=== PATIENT | male | born 1970 | race Caucasian/White ===

== ENCOUNTER → 2018-01-02 08:37 | Outpatient (CLI) | payer MEDICAID, SELFPAY ==
--- NOTE | 2018-01-02 14:13 | PFT ---
INTRODUCTION: The patient is a 48-year-old male currently under the care of Dr. White that presents for pulmonary function testing secondary to a diagnosis of COPD. Respiratory therapy reports good patient effort reports no other concerns. Bronchodilators were used during testing. INTERPRETATION: Forced expiration spirometry demonstrates the presence of a mild large airways obstructive ventilatory defect. There was no significant response to aerosolized bronchodilators, based upon strict ATS criteria. Spirograms are of good quality and do not plateau indicating slow emptying of the lungs. Body plethysmography was performed and reveals lung volumes to be within normal limits. Diffusing capacity by single breath CO is within normal limits at 85% of predicted. When compared to previous pulmonary function studies dated January 2016 there has been an 8% reduction in the patient's FEV1 along with a 12% reduction in DLCO. IMPRESSION: These pulmonary function studies demonstrate the presence of an irreversible mild large airways obstructive ventilatory defect with preserved lung volumes and diffusing capacity.
== END ==
PROVIDERS: Visit Provider Internal Medicine Critical Care Medicine
DX: J44.9 Chronic obstructive pulmonary disease, unspecified (principal)
CPT/HCPCS: 94060; 94726; 94729

== ENCOUNTER → 2019-01-11 06:50 | Outpatient (CLI) | payer MEDICAID, SELFPAY ==
--- NOTE | 2019-01-11 12:27 | PFT ---
INTRODUCTION: The patient is a 49-year-old male that presents for pulmonary function studies secondary to a diagnosis of COPD. Respiratory therapy reports good patient effort. Bronchodilators were used during testing. INTERPRETATION: Forced expiration spirometry demonstrates the presence of a mild large airways obstructive ventilatory defect. There was no significant response to aerosolized bronchodilators, based upon strict ATS criteria. Spirograms are of good quality and do not plateau indicating slow emptying of the lungs. Body plethysmography was performed and reveals lung volumes to be within normal limits. Diffusing capacity by single breath CO is also within normal limits at 82% of predicted. When compared to previous pulmonary function studies dated December 2017, there has been a 13% reduction in FEV1. IMPRESSION: These pulmonary function studies demonstrate the presence of an irreversible mild large airways obstructive ventilatory defect with preserved lung volumes and diffusing capacity.
== END ==
PROVIDERS: Visit Provider Nurse Practitioner Acute Care
DX: J44.9 Chronic obstructive pulmonary disease, unspecified (principal)
CPT/HCPCS: 94060; 94726; 94729

== ENCOUNTER 2019-03-04 10:27 | Day surgery (SDC) | payer MEDICAID, SELFPAY ==
[2019-03-04] VITALS (7 sets, daily range): BP systolic 110–135; BP diastolic 63–83; PULSE 47–60; RESP 16–18; TEMP 36.4–36.6; O2SAT 99–100; BMI 18.4
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
--- NOTE | 2019-03-04 11:36 | OP.ENDO_ITS ---
03/04/2019 Ninoska Roman [facility] Re : Colonoscopy procedure for Maxim Montelongo [facility] This procedure was performed on Monday, March 04, 2019. My impressions and recommendations are as follows: Impressions : - The entire examined colon is normal on direct and retroflexion views. - No specimens collected. Recommendations : - Discharge patient to home. - Resume previous diet. - Continue present medications. - Repeat colonoscopy in 5 years for surveillance due to family history of colon cancer. My findings are described in the full procedure note, which is enclosed. If I can be of further assistance, please feel free to contact me at Doctor phone number(s): , Work: . Sincerely, Gurmeet Anthony MD 03/04/2019 11:36:34 AM This report has been signed electronically.
== END 2019-03-04 12:24 | disposition home or self-care (01) ==
LOC: EN 10:28 → AC 10:32
PROVIDERS: Visit Provider Surgery
PROC: 0DJD8ZZ Inspection of Lower Intestinal Tract, Via Natural or Artificial Opening Endoscopic (ICD-10-PCS; CPT 45378; principal; 2019-03-04 11:25)
DX: Z12.11 Encounter for screening for malignant neoplasm of colon (principal); K21.9 Gastro-esophageal reflux disease without esophagitis; I10 Essential (primary) hypertension; E78.00 Pure hypercholesterolemia, unspecified; J45.909 Unspecified asthma, uncomplicated; F32.9 Major depressive disorder, single episode, unspecified; F41.9 Anxiety disorder, unspecified; F17.200 Nicotine dependence, unspecified, uncomplicated; Z79.899 Other long term (current) drug therapy; Z80.0 Family history of malignant neoplasm of digestive organs
CPT/HCPCS: 45378; J7120

== ENCOUNTER → 2020-03-31 09:08 | Outpatient (CLI) | payer MEDICAID, SELFPAY ==
[2019-10-08 11:19] VITALS: BMI 18.8
--- NOTE | 2020-03-31 13:55 | PFTCOMP ---
COMPLETE PULMONARY FUNCTION TEST INTERPRETATION Brief HPI: Patient is a 50 year old male, currently under the care of myself, who presents to [facility] for complete pulmonary function tests secondary to diagnosis of COPD. Respiratory therapist reports good effort and reproducible results. Interpretation: Forced expiration spirometry shows a mild large airways obstructive ventilatory defect with an FEV1 of 71% predicted. There is no significant bronchodilator response by strict ATS criteria. Spirograms are of good quality and plateau slowly, indicating slowly emptying areas of the lungs. The respiratory flow volume loop shows decreased expiratory flow rates at all lung volumes consistent with airway obstruction. Lung volumes by body plethysmography show a normal total lung capacity at 6.13 L, 97% predicted. All other lung volumes are within normal limits. Diffusion capacity by carbon monoxide is normal at 80% predicted. The airway resistance is normal. Compared to previous pulmonary function tests from 01/11/2019, there has been no significant change. Impression: Irreversible mild large airways obstructive ventilatory defect with no significant business change manager the last year.
== END ==
PROVIDERS: PCP Nurse Practitioner Family; Referring Provider Internal Medicine Critical Care Medicine; Visit Provider Internal Medicine Critical Care Medicine
DX: J44.9 Chronic obstructive pulmonary disease, unspecified (principal); Z72.0 Tobacco use
CPT/HCPCS: 94060; 94726; 94729

== ENCOUNTER → 2020-10-08 08:15 | Outpatient (CLI) | payer MEDICAID, SELFPAY ==
[2020-04-06 07:51] VITALS: BMI 20.7
--- NOTE | 2020-10-09 14:55 | PFT ---
INTRODUCTION: The patient is a 50-year-old male that presents for pulmonary function studies secondary to a diagnosis of COPD. Respiratory therapy reports good patient effort. Bronchodilators were used during testing. INTERPRETATION: Forced expiration spirometry demonstrates the presence of a mild large airways obstructive ventilatory defect. There was no significant response to aerosolized bronchodilators. Spirograms are of good quality and do not plateau indicating slow emptying of the lungs. Body plethysmography was performed and reveals lung volumes to be within normal limits. Diffusing capacity by single breath CO is also within normal limits. IMPRESSION: Irreversible mild large airways obstructive ventilatory defect with preserved lung volumes and diffusing capacity.
== END ==
PROVIDERS: Referring Provider Nurse Practitioner Acute Care; Visit Provider Nurse Practitioner Acute Care
DX: J44.9 Chronic obstructive pulmonary disease, unspecified (principal)
CPT/HCPCS: 94060; 94726; 94729

== ENCOUNTER → 2020-10-15 11:33 | Outpatient (CLI) | payer MEDICAID, SELFPAY ==
[2020-04-06 07:51] VITALS: BMI 20.7
[2020-10-15 12:33] LABS: Absolute Lymphocyte Count 2.09 X10^3/uL (0.83-4.51); Absolute Neutrophil Count 5.3 X10^3/uL (2.0-7.7); Basophil# 0.07 X10^3/uL; Basophil% 0.8 % (0-1); Eosinophil# 0.27 X10^3/uL; Eosinophils% 3.2 % (0-5); Hematocrit 47.7 % (40-54); Lymphocyte # 2.09 X10^3/ul (4.0); Lymphocyte % 25.2 % (19-41); Mean Corp Hgb Conc 33.5 g/dL (32-36); Mean Corpuscular Volume 89.5 fL (80-94); Mean Platelet Vol. 9.1 fl (6.2-12.0); Monocyte# 0.54 X10^3/uL; Monocyte% 6.5 % (0-10); NRBC Flagged by Analyzer 0 % (0-5); Neutrophil # 5.27 X10^3/uL (2.7-7.7); Neutrophil % 63.5 % (47-70); Platelet Count 261 K/mm3 (150-450); RBC Distribution Width CV 13.1 % (11.6-14.6); Red Blood Count 5.33 M/mm3 (4.6-6.2); White Blood Count 8.3 K/mm3 (4.4-11.0)
[2020-10-15 13:11] LABS: ALB/GLOB Ratio 1.2 RATIO (0.9-2.4); AST(SGOT) 17 U/L (15-37); Alanine Aminotransfer ALT/SGPT 39 U/L (16-61); Albumin, Serum 3.7 g/dL (3.2-5.0); Alkaline Phosphatase 100 U/L (45-117); Anion Gap 4 (5-15); BUN 12 mg/dL (7-18); BUN/Creat Ratio 11.3 RATIO (10-20); Calcium,Total 8.8 mg/dL (8.5-10.1); Chloride 107 mmol/L (98-107); Cholesterol 212 mg/dL (200); Creatinine, Serum 1.06 mg/dL (0.70-1.30); EST Glomerular Filtration Rate 78 mL/min (>60); Est Glom Filt Rate - Afr Amer 94 mL/min (>60); Globulin 3.2 g/dL (2.2-4.2); Glucose 84 mg/dL (74-106); High Density Lipoprotein 63 mg/dL; Potassium 3.7 mmol/L (3.5-5.1); Protein, Total 6.9 g/dL (6.4-8.2); Sodium Level 141 mmol/L (136-145); T4 Free Direct 0.87 ng/dL (0.76-1.46); Thyroid Stim Hormone (TSH) 1.41 uIU/mL (0.358-3.74); Triglycerides 117 mg/dL; Very Low Density Lipoprotein 23 mg/dL (5-40)
== END ==
PROVIDERS: Referring Provider Family Medicine; Visit Provider Family Medicine
DX: I10 Essential (primary) hypertension (principal); E78.5 Hyperlipidemia, unspecified; F41.9 Anxiety disorder, unspecified; E55.9 Vitamin D deficiency, unspecified
CPT/HCPCS: 36415; 80053; 80061; 84439; 84443; 85025

== ENCOUNTER → 2021-02-12 14:33 | Outpatient (CLI) | payer MEDICAID, SELFPAY ==
[2021-01-27 08:32] VITALS: BMI 22.5
== END ==
PROVIDERS: PCP Family Medicine; Referring Provider Nurse Practitioner Acute Care; Visit Provider Nurse Practitioner Acute Care
DX: R52 Pain, unspecified (principal)
CPT/HCPCS: 87635; C9803; U0002

== ENCOUNTER → 2021-07-27 17:38 | Outpatient (CLI) | payer MEDICAID, SELFPAY ==
--- NOTE | 2021-07-27 17:37 | CT_ITS ---
STUDY: LOW DOSE CT LUNG CANCER SCREENING REASON FOR EXAM: Male, 51 years old. Smoker and gt; 20 pack years. Patient smoked 1 pack per day for 40 years. COPD. Asthma. RADIATION DOSAGE (If Supplied By Facility): CTDIvol = ( 1.59 ) mGy, DLP = ( 51.82 ) mGycm TECHNIQUE: No contrast was administered. Low dose technique was utilized (average mAS-38 and kVp 120). 1.25 mm axial source images with a slice interval of 1.25-mm were reconstructed in lung windows. 2.5 mm axial source images with a slice interval of 2.5-mm were reconstructed in lung windows. 5.0 mm axial source images with a slice interval of 5.0-mm were reconstructed in soft tissue windows. Nodule measured using lung windows on PACS and/or independent workstation with automated measurement of minimum and maximum diameter. Nodule measurement reported as average diameter rounded to the nearest whole number. Growth is defined as an increase ins size of greater than 1.5 mm. COMPARISON: None. NODULES: No suspicious nodules are seen. Emphysema: Hyperinflation. Emphysematous changes worse in the upper lobes with centrilobular emphysema. Scarring at both lung apices. Endobronchial lesion: None Aorta: Atherosclerotic plaques of the aortic arch and descending thoracic aorta. Coronary arteries: Coronary artery calcification. Mediastinal nodes: Small benign-appearing mediastinal lymph nodes. Other chest and abdominal findings: CT/Low Dose CT Lung Screening IMPRESSION: Lung-RADS category 2 - Continue annual screening with LDCT in 12 months. IMPORTANT NOTES FOR USE: ACR Lung-RADS Version 1.1 Assessment Categories Release Date: 2018 Category: Coded 0-4 bases on nodule(s) with highest degree of suspicion. Negative screen is defined as categories 1 and 2; a positive screen is defined as categories 3 and 4. Category 3 and 4A nodules that are unchanged on interval CT should be coded as category 2, and individuals returned to screening in 12 months. Category 4X: Category 3 or 4 nodules with additional imaging findings that increase the suspicion of lung cancer, such as spiculation, GGN that doubles in size in 1 year, enlarged lymph notes, etc. Category Modifiers: S (significant finding unrelated to lung cancer) Electronically Signed: Mic Roblero MD at 12:42 EDT , Service support ,
== END ==
PROVIDERS: PCP Family Medicine; Referring Provider Nurse Practitioner Acute Care; Visit Provider Nurse Practitioner Acute Care
DX: Z12.2 Encounter for screening for malignant neoplasm of respiratory organs (principal); F17.210 Nicotine dependence, cigarettes, uncomplicated
CPT/HCPCS: 71271

== ENCOUNTER → 2022-03-01 | Outpatient (CLI) | payer MEDICAID, SELFPAY ==
--- NOTE | 2022-03-01 13:30 | PFTCOMP ---
COMPLETE PULMONARY FUNCTION TEST INTERPRETATION Brief HPI: Patient is a 52 year old male, currently under the care of myself, who presents to [facility] for complete pulmonary function tests secondary to diagnosis of COPD. Respiratory therapist reports good effort and reproducible results. Interpretation: Forced expiration spirometry shows a mild large airways obstructive ventilatory defect with an FEV1 of 73% predicted. There is no significant bronchodilator response by strict ATS criteria. Spirograms are of good quality and plateau slowly, indicating slowly emptying areas of the lungs. The respiratory flow volume loop shows decreased expiratory flow rates at all lung volumes consistent with airway obstruction. Lung volumes by body plethysmography show a normal total lung capacity at 6.39 L, 98% predicted. All other lung volumes are within normal limits. Diffusion capacity by carbon monoxide is normal at 84% predicted. The airway resistance is slightly elevated. Compared to previous pulmonary function tests from 10/08/2020, there has been no significant change. Impression: Irreversible mild large airways obstructive ventilatory defect with relative preservation of lung volumes and diffusion capacity, in a pattern consistent with chronic bronchitis.
== END | disposition home or self-care (01) ==
PROVIDERS: PCP Family Medicine; Referring Provider Nurse Practitioner Acute Care; Visit Provider Nurse Practitioner Acute Care
DX: J44.9 Chronic obstructive pulmonary disease, unspecified (principal)
CPT/HCPCS: 94060; 94726; 94729

== ENCOUNTER → 2022-03-08 | Outpatient (CLI) | payer MEDICAID, SELFPAY ==
[2022-03-08 09:30] VITALS: PULSE 70; PULSE 78; PULSE 85; PULSE 87; PULSE 92; PULSE 93; PULSE 94; O2SAT 96; O2SAT 97; O2SAT 98
--- NOTE | 2022-03-09 07:05 | PCM.PSN.6M ---
PSN 6 Minute Walk Test 6 Minute Walk Test 6 Minute Walk Test: 6 Minute Walk Test PSN:6-Minute Walk Test Start: 03/08/22 09:30 Freq: Status: Active Protocol: [id number].[id number] Document 03/08/22 09:30 [facility] (Rec: 03/08/22 09:32 [facility] [id number]) 6 Minute Walk Test Pre-test Oxygen Delivery Method Room Air Pulse Ox (%) 97 Pulse Rate (60-100 beats/min) 70 Dyspnea Jaydon Scale (0-10) 0.5 Exertion Jaydon Scale (6-20) 6 1st minute Oxygen Delivery Method Room Air Pulse Ox (%) 96 Pulse Rate (60-100 beats/min) 87 2nd minute Oxygen Delivery Method Room Air Pulse Ox (%) 96 Pulse Rate (60-100 beats/min) 85 3rd minute Oxygen Delivery Method Room Air Pulse Ox (%) 97 Pulse Rate (60-100 beats/min) 87 4th minute Oxygen Delivery Method Room Air Pulse Ox (%) 96 Pulse Rate (60-100 beats/min) 92 5th minute Oxygen Delivery Method Room Air Pulse Ox (%) 97 Pulse Rate (60-100 beats/min) 93 6th minute Oxygen Delivery Method Room Air Pulse Ox (%) 96 Pulse Rate (60-100 beats/min) 94 Dyspnea Jaydon Scale (0-10) 2 Exertion Jaydon Scale (6-20) 11 Post-test Oxygen Delivery Method Room Air Pulse Ox (%) 98 Pulse Rate (60-100 beats/min) 78 Full Laps Walked 18 Partial Lap, Number of Tiles Walked 20 Total Distance Walked (ft) 1082 Interpretation Interpretation: The patient ambulated 1082 feet over the course of 6 minutes beginning on room air without assistive devices. Pretesting oxygen saturation was noted to be 97% on room air. With ambulation, the rodrigo oxygen saturation was 96%. There was no significant exertional oxygen desaturation. Recommendations Recommendations: There is no indication for the use of supplemental oxygen at this time.
== END | disposition home or self-care (01) ==
PROVIDERS: PCP Family Medicine; Referring Provider Nurse Practitioner Acute Care; Visit Provider Nurse Practitioner Acute Care
DX: J44.9 Chronic obstructive pulmonary disease, unspecified (principal)
CPT/HCPCS: 94618

== ENCOUNTER → 2022-09-03 | Outpatient (CLI) | payer MEDICAID, SELFPAY ==
--- NOTE | 2022-09-03 10:07 | CT_ITS ---
EXAM: CT CHEST, LUNG CANCER SCREENING WITHOUT INTRAVENOUS CONTRAST CLINICAL INDICATION: smoker and gt; 20 pack years, 1/2 pack per day x 38 years, hyypertension, COPD, asthma, emphysema. TECHNIQUE: Helically acquired images were obtained of the chest without intravenous contrast using low dose (LDCT) lung cancer screening protocol. This CT exam was performed using one or more of the following dose reduction techniques: automated exposure control, adjustment of the mA and/or kV according to patient size, and/or use of iterative reconstruction technique. This report was created using Bit[employer]amp report [employer]usp[employer] technology. COMPARISON: None. FINDINGS: LUNGS AND PLEURAL SPACES: Diffuse paraseptal and centrilobular pulmonary emphysema noted. No evidence of lung mass or nodule. No pleural effusion or thickening. No pneumothorax. HEART: Normal. Heart size is normal. No pericardial effusion. No significant coronary artery calcifications. MEDIASTINUM: Normal. No mediastinal or hilar adenopathy. Esophagus is unremarkable. No hiatal hernia. THYROID: Normal. No thyroid lesions. BONES/JOINTS: Disc space narrowing noted at the mid and lower thoracic spine level. No suspicious lytic or blastic abnormality. VASCULATURE: Normal. Thoracic aorta is non-dilated. LYMPH NODES: Normal. No enlarged lymph nodes. CT/Low Dose CT Lung Screening IMPRESSION: 1. No evidence of lung mass or pulmonary nodule. 2. Pulmonary emphysema. 3. ACR Lung CT Screening Reporting T Data System (Lung-RADS) score: 1S - Additional clinically significant or potentially clinically significant findings are described. Recommend continued annual screening with low-dose CT (LDCT) in 12 months. Electronically Signed: Karlo Mittal MD at 12:07 EDT ,
== END | disposition home or self-care (01) ==
LOC: CT 10:08
PROVIDERS: PCP Family Medicine; Referring Provider Nurse Practitioner Acute Care; Visit Provider Nurse Practitioner Acute Care
DX: Z12.2 Encounter for screening for malignant neoplasm of respiratory organs (principal); F17.210 Nicotine dependence, cigarettes, uncomplicated
CPT/HCPCS: 71271

== ENCOUNTER → 2024-03-08 | Outpatient (CLI) | payer OTHER, SELFPAY ==
--- NOTE | 2024-03-08 12:51 | CT_ITS ---
HISTORY: smoker. TECHNIQUE: Helically acquired images were obtained of the chest without contrast. A radiation dose optimization technique was used for this scan. 825 images. COMPARISON: 09/03/2022, 07/27/2021. FINDINGS: LARGE AIRWAYS: Patent. LUNGS: Moderate emphysema with chronic mild biapical and peripheral scarring. Tiny calcified right lower lobe granuloma again seen. No new suspicious nodule or acute alveolar consolidation. PLEURA: No pneumothorax or significant pleural effusion. HEART/PERICARDIUM: Heart within normal limits in size with coronary artery calcification. No pericardial effusion. VESSELS: Thoracic aorta nondilated. Mild atherosclerosis. MEDIASTINUM/LAVELL: Stable borderline enlarged right paratracheal lymph node. BONES: Mild degenerative change. CT/Low Dose CT Lung Screening IMPRESSION: Lung-RADS category 2: Continue annual screening with low dose CT. Electronically Signed: Zandra Perez MD at 11:41 EDT ,
== END | disposition home or self-care (01) ==
PROVIDERS: PCP Family Medicine; Referring Provider Nurse Practitioner Acute Care; Visit Provider Nurse Practitioner Acute Care
DX: Z12.2 Encounter for screening for malignant neoplasm of respiratory organs (principal); J44.9 Chronic obstructive pulmonary disease, unspecified; F17.210 Nicotine dependence, cigarettes, uncomplicated
CPT/HCPCS: 71271; 94060; 94726; 94729

== ENCOUNTER → 2025-04-08 | Outpatient (CLI) | payer BC, SELFPAY ==
--- NOTE | 2025-04-08 07:14 | CT_ITS ---
PROCEDURE: LOW DOSE CT LUNG SCREENING 04/08/2025 REASON FOR EXAM: SMOKING TECHNIQUE: Low Dose CT Lung screening without contrast. Coronal and Sagittal reconstruction series were provided. One or more dose reduction techniques were used (e.g., Automated exposure control, adjustment of the mA and/or kV according to patient size, use of iterative reconstruction technique). [facility]FER[facility] LINK: [facility] Lung-R[facility] RADIATION DOSE SUMMARY: CTDlvol: 1.6 mGy DLP: 51 mGycm COMPARISON: CT chest 03/08/2024 FINDINGS: Lymph Nodes: No significant lymphadenopathy. Heart and Vasculature:Normal heart size. Mild coronary and aortic calcification. There are multiple scattered nodular opacities measuring up to 5 mm at the right lateral lung base (series 2, image 173), new since 03/08/2024. Unchanged 5 mm nodule in the right middle lobe (image 166) and 4 mm nodule in the right upper lobe (image 117). Lungs and Airways: Central airways are clear. Apical predominant centrilobular and paraseptal emphysema. Pleura:No effusion. Upper Abdomen:Unremarkable Bones:Healed left-sided rib fractures. Degenerative changes of the spine. CT/Low Dose CT Lung Screening IMPRESSION: Nodular opacities in the right lung base are new from 03/08/2024 and favored to be infectious or inflammatory. Findings are consistent with Lung-RADS Category: 0 INFLAMMATORY-INCOMPLETE. FINDINGS SUGGEST BRENDAN OF AN INFLAMMATORY OR INFECTIOUS PROCESS. RECOMMEND 1-3 MONTH LDCT. Other Significant Findings: Mild coronary calcification. Reading Location: [facility]
--- OUTSIDE RECORDS SUMMARY | 2025-04-08 07:32 | XMS RPT_ITS | CCD ---
Author Organization [facility] Care Team Providers Care Bow String Maker Name Role Phone Snell COLLATOR OPERATOR, Meri Eliza Unavailable Unavaila ble Snell COLLATOR OPERATOR, Meri Eliza Unavailable Unavaila ble Snell COLLATOR OPERATOR, Meri Eliza Unavailable Unavaila KAREEM Thomas MD Primary Care Physician Dr. Kareem Joyner Primary Care Provider Giovanna MANAGER IN TRAINING, MANAGER IN TRAINING-C Ester Referring Provider [phone] Giovanna MANAGER IN TRAINING, MANAGER IN TRAINING-C Ester Other Provider Dr. Rojelio White Attending Provider [phone] Nicolas Obrien Attending Provider [phone] Kareem Joyner Primary Care Provider KAREEM JOYNER MD Attending Unavailable KAREEM JOYNER MD Primary Care Unavailable KAREEM JOYNER MD Primary Care Unavailable AMY BABCOCK Attending Unavailable KAREEM JOYNER MD Attending Unavailable KAREEM JOYNER MD Primary Care Unavailable Kareem Joyner Primary Care Unavailable Kareem Joyner Referring Unavailable Ester Heredia NP Attending Unavailable Kareem Joyner Primary Care Unavailable Kareem Wen Attending Unavailable Kareem Wen Attending Unavailable Kareem Joyner Primary Care Unavailable Ester Heredia NP Attending Unavailable Ester Heredia NP Referring Unavailable Kareem Joyner Primary Care Unavailable Allergies Allergy Classification Reported Allergen(s) Allergy Type Date of Onset Reaction(s) Facility (13 sources) apis mellifera venom; Translations: [BEE STINGS] allergy to substance 5 Shortness of breath, swelling, anaphylaxic shock depending on type of bee [facility] Work Phone: (1 source) bee venom protein (honey bee) Allergy to substance 2 NEEDS FOLLOW-UP [facility] Work Phone: (1 source) bee venom protein (honey bee) Drug allergy (disorder) 5 [facility] Repository NEGATED: Highlighted row has been ruled out! (1 source) Drug allergy [facility] NEGATED: Highlighted row has been ruled out! (1 source) Drug allergy [facility] NEGATED: Highlighted row has been ruled out! (1 source) Drug allergy [facility] NEGATED: Highlighted row has been ruled out! (1 source) Drug allergy [facility] Medications Current Medications Medication Drug Class(es) Dates Sig (Normalized) Sig (Original) albuterol (20 sources) beta2-Adrenergic Agonist Start: 03-31-2023 take 2 puff(s) by inhalation every four hours as needed for wheezing Ventolin HFA MDI (90 mcg/inh) inhalation aerosol 2 puff(s), Inhalation, q4h, PRN as needed for wheezing, # 18 gram(s), 3 Refill(s), [facility]acy: [facility] #[id number], 173, cm, 03/31/23 14:47:00 EDT, Height, kg, 03/31/23 14:47:00 EDT, Dosing Weight Start Date: 03/31/23 Status: Ordered Start: 06-07-2021 take 2 puff(s) by in halation every four hours as needed for wheezing Ventolin HFA MDI (90 mcg/inh) inhalation aerosol 2 puff(s), Inhalation, q4h, PRN as needed for wheezing, # 8 gram(s), 0 Refill(s) Start Date: 06/07/21 Status: Ordered Start: 01-15-2018 take 1 puff(s) by in halation every four hours Albuterol Sulfate (Ventolin Hfa) 90 mcg/actuation HFA aerosol inhaler Active 2 PUFF INHALATION Q4H January 15, 2018 8:15am Start: 01-08-2018 End: 01-15-2018 take 1 puff(s) by inhalation every four hours Albuterol Sulfate (Ventolin Hfa) 90 mcg/actuation HFA aerosol inhaler Discontinued 2 PUFF INHALATION Q4H January 08, 2018 2:13pm January 15, 2018 8:16am Start: 03-28-2016 VENTOLIN HFA 1 08 (90 Base) MCG/ACT AERS 2 puffs every 4 hours ALBUTEROL SULFATE [id number] Ester Heredia FERRYBOAT HELPER Start: 09-29-2015 take 2 puff(s) by mo uth every four hours as needed VENTOLIN HFA 108 (90 Base) MCG/ACT AERS 2 puff by mouth every 4H as needed ALBUTEROL SULFATE [id number] Ester Heredia FERRYBOAT HELPER Start: 09-29-2015 End: 04-20-2016 take 2 puff(s) by mouth every four hours as needed VENTOLIN HFA 108 (90 Base) MCG/ACT AERS 2 puff by mouth every 4H as needed ALBUTEROL SULFATE [id number] Meri Vang take 2 puff(s) by mo uth every four hours as needed VENTOLIN HFA 108 (90 Base) MCG/ACT AERS 2 puff by mouth every 4H as needed ALBUTEROL SULFATE [id number] Denise Quevedo amLODIPine 5 mg oral tablet (3 sources) Dihydropyridine Calcium Channel Juani Start: 01-27-2021 take 5 mg by mouth once daily Amlodipine Active 5 MG PO DAILY January 27, 2021 8:37am amoxicillin 875 mg / clavulanate 125 mg oral tablet (1 source) Penicillin-class Antibacterial Start: 09-13-2021 End: 09-20-2021 take 1 tablet by mouth every twelve hours amoxicillin-clavu lanate 875 mg-125 mg oral tablet 1 tab(s), Oral, q12h, X 7 day(s), # 14 tab(s), 0 Refill(s), 09/20/21 14:58:00 EST, Pharmacy: [id number], Acute sinusitis, 172.7, cm, 06/07/21 9:46:00 EDT, Height, 66.8, kg, 09/13/21 14:37:00 EST, Dosing Weight Start Date: 09/13/21 Stop Date: 09/20/21 Status: Ordered atorvastatin 10 mg oral tablet (6 sources) HMG-CoA Reductase Inhibitor Start: 01-27-2021 atorvastatin 10 mg oral tablet Dose : 10 mg = 1 tab(s), Oral, qDay, # 90 tab(s), 3 Refill(s), Pharmacy: [facility] [id number] [facility], 172.7, cm, 12/15/21 8:54:00 EST, Height, kg, 12/15/21 8:54:00 EST, Dosing Weight Start Date: 01/25/22 Status: Ordered azelastine hydrochloride 0.206 mg/actuat metered dose nasal spray (5 sources) Histamine-1 Receptor Antagonist Start: 11-02-2021 azelastine 205.5 mcg/inh (0.15%) nasal spray Nasal, BID, 0 Refill(s) Start Date: 11/02/21 Status: Ordered Start: 11-02-2021 take 1 spray(s) nasa l route twice daily Azelastine Active 1 SPRAY INTRANASAL TWICE A DAY November 02, 2021 11:57am administer into each nostril azelastine 205.5 mcg/inh (0.15%) nasal spray (1 source) Start: 11-02-2021 azelastine 205 .5 mcg/inh (0.15%) nasal spray Nasal, BID, 0 Refill(s) Start Date: 11/02/21 Status: Ordered Breo Ellipta 200 mcg-25 mcg/inh inhalation powder (3 sources) Start: 12-04-2020 take 1 dose by inhalation once daily Breo Ellipta 200 mcg-25 mcg/inh inhalation powder Dose = 1 puff(s), Inhalation, qDay, # 28 EA, 0 Refill(s) Start Date: 12/04/20 Status: Ordered 24 hr buPROPion hydrochloride 300 mg extended release oral tablet (16 sources) Aminoketone Start: 06-07-2021 End: 06-02-2022 take 1 tablet by mouth every hour, then take 1 tablet by mouth once daily Wellbutrin XL 300 mg/24 hours oral tablet, extended release Dose : 300 mg = 1 tab(s), Oral, qDay, # 90 tab(s), 3 Refill(s), [facility] [address] Depression Vertigo, 172.7, cm, 06/07/21 9:46:00 EDT, Height, kg, 06/07/21 9:46:00 EDT, Dosing Weight Start Date: 06/07/21 Stop Date: 06/02/22 Status: Ordered Start: 06-07-2021 End: 10-05-2021 take 1 tablet by mouth every hour, then take 1 tablet by mouth once daily at bedtime Wellbutrin SR 150 mg/12 hours oral tablet, extended release Dose : 150 mg = 1 tab(s), Oral, qHS, # 90 tab(s), 3 Refill(s), [facility] [address] 172.7, cm, 06/07/21 9:46:00 EDT, Height, kg, 06/07/21 9:46:00 EDT, Dosing Weight Start Date: 06/07/21 Stop Date: 10/05/21 Status: Ordered Start: 01-27-2021 take 150 mg by mouth once daily in the morning Bupropion Hcl Active 150 MG PO EVERY MORNING January 27, 2021 8:40am Start: 01-27-2021 take 300 mg by mouth once daily in the morning Bupropion Hcl Active 300 MG PO EVERY MORNING January 27, 2021 8:38am Start: 04-20-2016 End: 07-27-2016 BUPROPION HCL ER (XL) 150 MG [id number] 1 tab daily BUPROPION HCL [id number] Meri Snell LPN cyclobenzaprine hydrochloride 10 mg oral tablet (1 source) Muscle Relaxant Start: 11-27-2021 End: 12-02-2021 cyclobenzaprine 10 mg oral tablet Dose : 10 mg = 1 tab(s), Oral, TID, X 5 day(s), # 15 tab(s), 0 Refill(s), 12/02/21 20:44:00 EST Start Date: 11/27/21 Stop Date: 12/02/21 Status: Ordered doxazosin 4 mg oral tablet (9 sources) alpha-Adrenergic Juani Start: 12-05-2023 doxazosin 4 mg oral tablet Dose : 4 mg = 1 tab(s), Oral, Daily, # 30 tab(s), 1 Refill(s), [id number], COPD (chronic obstructive pulmonary disease) with acute lower respiratory infection Mixed hyperlipidemia, 172.5, cm, 02/07/24 8:37:00 EDT, Height, kg, 02/07/24 8:37:00 EDT, Dosing Weight Start Date: 04/18/24 Status: Ordered Start: 09-09-2022 doxazosin 4 mg oral tablet Dose : 4 mg = 1 tab(s), Oral, Daily, # 90 tab(s), 1 Refill(s), [facility]acy: [facility] #[id number], COPD (chronic obstructive pulmonary disease) with acute lower respiratory infection Mixed hyperlipidemia, 173, cm, 09/01/22 14:05:00 EDT, Height, kg, 09/01/22... Start Date: 09/09/22 Status: Ordered Start: 01-27-2021 doxazosin 4 mg oral tablet Dose : 4 mg = 1 tab(s), Oral, Daily, # 90 tab(s), 3 Refill(s), Pharmacy: [facility] [address] COPD (chronic obstructive pulmonary disease) with acute lower respiratory infection Mixed hyperlipidemia, 172.7, cm, 06/07/21 9:46:00 EDT, Height, kg,... Start Date: 07/28/21 Status: Ordered escitalopram 20 mg oral tablet (9 sources) Serotonin Reuptake Inhibitor Start: 12-22-2021 escitalopram 20 mg oral tablet Dose : 20 mg = 1 tab(s), Oral, Daily, # 90 tab(s), 3 Refill(s), Pharmacy: [facility] [address] 172.7, cm, 12/15/21 8:54:00 EST, Height, kg, 12/15/21 8:54:00 EST, Dosing Weight Start Date: 12/22/21 Status: Ordered Start: 07-28-2021 escitalopram 2 0 mg oral tablet Dose : 20 mg = 1 tab(s), Oral, Daily, # 30 tab(s), 3 Refill(s), Pharmacy: [facility] [address] 172.7, cm, 06/07/21 9:46:00 EDT, Height, kg, 06/07/21 9:46:00 EDT, Dosing Weight Start Date: 07/28/21 Status: Ordered Start: 01-27-2021 take 20 mg by mouth at bedtime Escitalopram Oxalate Active 20 MG PO AT BEDTIME January 27, 2021 8:39am Start: 03-01-2019 End: 01-27-2021 take 10 mg by mouth at bedtime Escitalopram Oxalate Di scontinued 10 MG PO AT BEDTIME March 01, 2019 9:15am January 27, 2021 8:41am fluticasone proprionate NASAL 50 mcg/ spray (2 sources) Start: 12-04-2020 take 1 dose nasal route once daily in the morning fluticasone proprionate NASAL 50 mcg/ spray Dose = 2 spray(s), Nostril, each, qAM, 0 Refill(s) Start Date: 12/04/20 Status: Ordered Roceyadodvu-Ugaxrehfn-Zf lanter (1 source) Start: 03-14-2022 Mrkvanhgcdp-Rvtwcuvfa-I ilanter (Trelegy Ellipta) 200-62.5-25 mcg blister with device Active 1 INH INHALATION Q24H 60 March 14, 2022 12:00am hydroCHLOROthiazide 12.5 mg oral capsule (9 sources) Thiazide Diuretic Start: 04-06-2020 take 12.5 mg by mouth once daily Hydrochlorothiazide Active 12.5 MG PO DAILY April 06, 2020 9:04am End: 03-28-2016 take 1 tablet by mouth once daily HYDROCHLOROTHIAZIDE 25 MG TABS One tablet by mouth daily HYDROCHLOROTHIAZIDE [id number] Denise Quevedo hydroCHLOROthiazide 25 mg / lisinopril 20 mg oral tablet (16 sources) Thiazide Diuretic, Angiotensin Converting Enzyme Inhibitor Start: 12-05-2023 take 1 tablet by mouth once daily hydrochlorothiazide-lisinopril 25 mg-20 mg oral tablet Dose = 1 tab(s), Oral, Daily, # 30 tab(s), 1 Refill(s), [facility]: [facility] #[id number], 172.5, cm, 02/07/24 8:37:00 EDT, Height, kg, 02/07/24 8:37:00 EDT, Dosing Weight Start Date: 04/18/24 Status: Ordered Start: 09-09-2022 End: 03-08-2023 take 1 tablet by mouth once daily hydrochlorothiazide-lisinopril 25 mg-20 mg oral tablet Dose = 1 tab(s), Oral, Daily, # 90 tab(s), 1 Refill(s), [facility]: [facility] #[id number], 173, cm, 09/01/22 14:05:00 EDT, Height, kg, 09/01/22 14:05:00 EDT, Dosing Weight Start Date: 09/09/22 Stop Date: 03/08/23 Status: Ordered Start: 08-19-2022 take 1 tablet by susan th once daily hydrochlorothiazide-lisinopril 12.5 mg-1 0 mg oral tablet Dose = 1 tab(s), Oral, Daily, # 90 tab(s), 0 Refill(s) Start Date: 08/19/22 Status: Ordered Start: 07-28-2021 End: 07-23-2022 take 1 tablet by mouth once daily hydrochlorothiazide-lisinopril 25 mg-20 mg oral tablet Dose = 1 tab(s), Oral, Daily, # 90 tab(s), 3 Refill(s), [facility]acy: [facility] 172.7, cm, 06/07/21 9:46:00 EDT, Height, kg, 06/07/21 9:46:00 EDT, Dosing Weight Start Date: 07/28/21 Stop Date: 07/23/22 Status: Ordered Start: 03-01-2019 Lisinopril-Hyd rochlorothiazide Active 1 EACH PO AT BEDTIME March 01, 2019 9:10am Start: 09-29-2015 take 1 tablet by susan th once daily LISINOPRIL-HYDROCHLOROTHIAZIDE 20-12.5 M G TABS One tablet by mouth daily LISINOPRIL-HYDROCHLOROTHIAZIDE [id number] Meri Snell LPN hydrOXYzine hydrochloride 10 mg oral tablet (9 sources) Antihistamine Start: 11-02-2021 take 10 mg by mouth at bedtime Hydroxyzine Hcl Active 10 MG PO AT BEDTIME November 02, 2021 11:26am Start: 01-19-2017 take 1 tablet by susan once daily as needed VISTARIL 25 MG CAPS One tablet by mouth daily as needed HYDROXYZINE PAMOATE [id number] Meri Kay Alis GELLER lidocaine 0.05 mg/mg medicated patch (2 sources) Antiarrhythmic, Amide Local Anesthetic Start: 11-27-2021 Lidoderm 5% topical patch Apply 1 patch(es), Transdermal, qDay, # 30 patch(es), 0 Refill(s), 62.4 Start Date: 11/27/21 Status: Ordered lisinopril 20 mg oral tablet (20 sources) Angiotensin Converting Enzyme Inhibitor Start: 12-05-2023 lisinopril 20 mg ora l tablet Dose : 20 mg = 1 tab(s), Oral, qDay, # 30 tab(s), 1 Refill(s), [facility]: [facility] #[id number], COPD (chronic obstructive pulmonary disease) with acute lower respiratory infection Mixed hyperlipidemia, 172.5, cm, 02/07/24 8:37:00 EDT, Height, kg, 02/07/24 8:37:00 EDT, Dosing Weight Start Date: 04/18/24 Status: Ordered Start: 09-09-2022 lisinopril 20 mg oral tablet Dose : 20 mg = 1 tab(s), Oral, qDay, # 90 tab(s), 1 Refill(s), [facility]acy: [facility] #[id number], COPD (chronic obstructive pulmonary disease) with acute lower respiratory infection Mixed hyperlipidemia, 173, cm, 09/01/22 14:05:00 EDT, Height, kg, 09/01/22... Start Date: 09/09/22 Status: Ordered Start: 12-28-2021 lisinopril 20 mg oral tablet Dose : 20 mg = 1 tab(s), Oral, qDay, # 90 tab(s), 3 Refill(s), [facility] [facility], COPD (chronic obstructive pulmonary disease) with acute lower respiratory infection Mixed hyperlipidemia, 172.7, cm, 12/15/21 8:54:00 EST, Height, kg,... Start Date: 12/28/21 Status: Ordered Start: 12-14-2020 lisinopril 20 mg oral tablet Dose : 20 mg = 1 tab(s), Oral, qDay, # 90 tab(s), 3 Refill(s), [facility]: [facility] [address] COPD (chronic obstructive pulmonary disease) with acute lower respiratory infection Mixed hyperlipidemia, 172, cm, 12/14/20 9:49:00 EST, Height, kg, 02... Start Date: 12/14/20 Status: Ordered Start: 03-01-2019 End: 04-06-2020 take 10 mg by mouth three times daily Lisinopril Active 10 MG PO THREE TIMES A DAY April 06, 2020 9:04am Start: 02-27-2014 End: 03-01-2019 take 10 mg by mouth once daily Lisinopril Discontinued 10 MG PO DAILY February 27, 2014 8:50pm March 01, 2019 9:15am End: 09-29-2015 take 1 tablet by mouth once daily LISINOPRIL 20 MG TABS One tablet by mouth daily LISINOPRIL [id number] Rojelio White meclizine hydrochloride 25 m g oral tablet (18 sources) Antiemetic Start: 02-07-2024 meclizine 25 m g oral tablet Dose : 25 mg = 1 tab(s), Oral, TID, # 90 tab(s), 1 Refill(s), [facility]: [facility] #[id number], 172.5, cm, 02/07/24 8:37:00 EDT, Height, kg, 02/07/24 8:37:00 EDT, Dosing Weight Start Date: 02/07/24 Status: Ordered Start: 01-08-2018 meclizine 25 m g oral tablet Dose : 25 mg = 1 tab(s), Oral, TID, # 90 tab(s), 1 Refill(s), [facility]acy: [facility] 172.7, cm, 12/15/21 8:54:00 EST, Height, kg, 12/15/21 8:54:00 EST, Dosing Weight Start Date: 01/25/22 Status: Ordered Start: 09-29-2015 MECLIZINE HCL 12.5 MG TABS Take 1 tab PO as needed MECLIZINE HCL [id number] Meri Vang Start: 09-29-2015 take 1 tablet by susan th once daily MECLIZINE HCL 25 MG TABS One tablet by mouth daily MECLIZINE HCL [id number] Meri Snell COLLATOR OPERATOR mirtazapine 45 mg oral table t (3 sources) Start: 06-25-2024 mirtazapine 45 mg oral tablet Dose : 45 mg = 1 tab(s), Oral, qHS, take 1 tablet by mouth at bedtime, # 30 tab(s), 1 Refill(s), Pharmacy: [id number], 172.5, cm, 02/07/24 8:37:00 EDT, Height, kg, 02/07/24 8:37:00 EDT, Dosing Weight Start Date: 06/25/24 Status: Ordered Start: 02-16-2024 mirtazapine 45 mg oral tablet Dose : 45 mg = 1 tab(s), Oral, qHS, take 1 tablet by mouth at bedtime, # 30 tab(s), 1 Refill(s), [facility]: [facility] #[id number], 172.5, cm, 02/07/24 8:37:00 EDT, Height, kg, 02/07/24 8:37:00 EDT, Dosing Weight Start Date: 02/16/24 Status: Ordered Start: 09-01-2022 take 1 tablet by susan at bedtime mirtazapine 45 mg oral tablet take 1 tablet by mouth at bedtime Start Date: 09/01/22 Status: Ordered ondansetron 4 mg disintegrating oral tablet (1 source) Serotonin-3 Receptor Antagonist Start: 05-03-2022 End: 05-08-2022 ondansetron 4 mg oral tablet, disintegrating Dose : 4 mg = 1 tab(s), Oral, q8h, PRN Nausea, allow tablet to dissolve on tongue, X 5 day(s), # 15 tab(s), 0 Refill(s), 05/08/22 11:06:00 EDT, [facility]acy: [facility] 172.7, cm, 12/15/21 8:54:00 EST, Height Start Date: 05/03/22 Stop Date: 05/08/22 Status: Ordered terbinafine 250 mg oral tablet (1 source) Allylamine Antifungal Start: 05-03-2022 terbinafine 250 mg oral tablet Dose : 250 mg = 1 tab(s), Oral, qDay, # 30 tab(s), 0 Refill(s) Start Date: 05/03/22 Status: Ordered traMADol hydrochloride 50 mg oral tablet (1 source) Opioid Agonist Start: 11-27-2021 End: 11-30-2021 traMADol 50 mg oral tablet Dose : 50 mg = 1 tab(s), Oral, q6hr, X 3 day(s), # 12 tab(s), 0 Refill(s), 11/30/21 20:44:00 EST, Rib contusion, 62.4 Start Date: 11/27/21 Stop Date: 11/30/21 Status: Ordered Trelegy Ellipta 200 mcg-62.5 mcg-25 mcg/inh inhalation powder (2 sources) Start: 05-03-2022 take 1 dose by inhalation once daily Trelegy Ellipta 200 mcg-62.5 mcg-25 mcg/inh inhalation powder Dose = 1 puff(s), Inhalation, qDay, at the same time every day, 0 Refill(s) Start Date: 05/03/22 Status: Ordered Completed/Discontinued Medications Medication Drug Class(es) Dates Sig (Normalized) Sig (Original) azithromycin 250 mg oral tablet (3 sources) Macrolide Antimicrobial Start: 08-13-2019 End: 04-06-2020 Azithromycin Discontinued 0 PO .COMPLEX 6 August 13, 2019 10:02am April 06, 2020 9:03am take 500 mg today (day 1), then 250 mg for 4 days (days 2-5) PO 120 actuat budesonide 0.16 mg/actuat / formoterol fumarate 0.0045 mg/actuat metered dose inhaler (3 sources) Corticosteroid, beta2-Adrenergic Agonist Start: 02-20-2020 End: 03-23-2020 take 1 puff(s) by mouth twice daily Budesonide-Formote rol (Symbicort) 160-4.5 mcg/actuation HFA aerosol inhaler Discontinued 2 PUFF INHALATION TWICE A DAY February 20, 2020 3:35pm March 23, 2020 9:03am administer with spacer, rinse mouth after each use [id number] 0.3 ml EPINEPHrine 1 mg/ml auto-injector (10 sources) alpha-Adrenergic Agonist, beta-Adrenergic Agonist, Catecholamine Start: 04-04-2023 EpiPen 2-Emily 0.3 mg injectable kit Dose : 0.3 mg = 1 kit, Intramuscular, AsDirected, PRN Allergic reaction, # 1 kit(s), 0 Refill(s), [facility]: [facility] #[id number], 173, cm, 03/31/23 14:47:00 EDT, Height Start Date: 04/04/23 Status: Ordered Start: 04-09-2021 End: 04-09-2022 EpiPen 2-Emily 0.3 mg injectab le kit Dose : 0.3 mg =, Subcutaneous, AsDirected, PRN Allergic reaction, # 1 kit(s), 0 Refill(s), 04/09/22 8:15:00 EDT, [facility]acy: [facility], 172.7, cm, 02/25/21 15:34:00 EDT, Height, kg, 02/25/21 15:34:00 EDT, Dosing Weight Start Date: 04/09/21 Stop Date: 04/09/22 Status: Ordered Start: 01-08-2018 Epinephrine (E pipen 2-Emily) 0.3 mg/0.3 mL auto-injector Active 0.3 MG SC ONCE January 08, 2018 2:11pm EPIPEN 2-EMILY 0.3 MG/0.3ML SOAJ as needed bee sting EPINEPHRINE [id number] Rojelio White fluticasone propionate 0.05 mg/actuat metered dose nasal spray (16 sources) Corticosteroid Start: 03-31-2023 End: 03-25-2024 take 1 dose nasal route once daily in the morning fluticasone 50 mcg/inh NASAL spray Dose = 2 spray(s), Nostril, each, qAM, # 3 EA, 3 Refill(s), [facility]: [facility] #[id number], 173, cm, 03/31/23 14:47:00 EDT, Height Start Date: 03/31/23 Stop Date: 03/25/24 Status: Ordered Start: 12-04-2020 take 1 dose nasal ro lien once daily in the morning fluticasone proprionate NASAL 50 mcg/ spray Dose = 2 spray(s), Nostril, each, qAM, 0 Refill(s) Start Date: 12/04/20 Status: Ordered Start: 03-01-2019 End: 11-02-2021 Fluticasone Propionate Activ e 2 SPRAY NASAL TWICE A DAY November 02, 2021 11:50am Start: 03-28-2016 take 1 puff(s) by in halation twice daily FLOVENT DISKUS 100 MCG/BLIST AEPB 1 puff twice daily FLUTICASONE PROPIONATE (INHAL) [id number] Ester Heredia CNP Start: 03-28-2016 End: 01-19-2017 take 1 puff(s) by inhalation twice daily FLOVENT DISKUS 100 MCG/BLIST AEPB 1 puff twice daily FLUTICASONE PROPIONATE (INHAL) [id number] Rojelio White Fluticasone Furoate-Vilanterol (15 sources) Corticosteroid, beta2-Adrenergic Agonist Start: 07-15-2021 End: 03-14-2022 Fluticasone Furoate-Vilanterol (Breo Ellipta) 200-25 mcg/dose blister with device Discontinued 1 INH INHALATION daily 60 July 15, 2021 10:23am March 14, 2022 11:24am after inhalation, rinse mouth with water and spit out; do not swallow Start: 07-15-2021 Fluticasone Fu roate-Vilanterol (Breo Ellipta) 200-25 mcg/dose blister with device Active 1 INH INHALATION daily 60 July 15, 2021 10:23am after inhalation, rinse mouth with water and spit out; do not swallow Start: 01-27-2021 End: 07-15-2021 Fluticasone Furoate-Vilanter ol (Breo Ellipta) 200-25 mcg/dose blister with device Discontinued 1 INH INHALATION daily 60 January 27, 2021 8:47am July 15, 2021 10:24am after inhalation, rinse mouth with water and spit out; do not swallow Start: 12-04-2020 End: 01-27-2021 Fluticasone Furoate-Vilanter ol (Breo Ellipta) 200-25 mcg/dose blister with device Discontinued 1 INH INHALATION daily 60 December 04, 2020 2:24pm January 27, 2021 8:48am after inhalation, rinse mouth with water and spit out; do not swallow Start: 03-23-2020 End: 12-04-2020 Fluticasone Furoate-Vilanter ol (Breo Ellipta) 200-25 mcg/dose blister with device Discontinued 1 INH INHALATION daily 60 March 23, 2020 9:03am December 04, 2020 2:24pm after inhalation, rinse mouth with water and spit out; do not swallow Start: 03-23-2020 End: 12-04-2020 Fluticasone Furoate-Vilanter ol (Breo Ellipta) 200-25 mcg/dose blister with device Discontinued 1 INH INHALATION daily 60 March 23, 2020 12:00am December 04, 2020 2:24pm after inhalation, rinse mouth with water and spit out; do not swallow Start: 10-08-2019 End: 02-20-2020 Fluticasone Furoate-Vilanter ol (Breo Ellipta) 100-25 mcg/dose blister with device Discontinued 1 INH INHALATION DAILY 60 October 08, 2019 12:22pm February 20, 2020 3:36pm 120 actuat formoterol fumarate 0.005 mg/actuat / mometasone furoate 0.2 mg/actuat metered dose inhaler (18 sources) Corticosteroid, beta2-Adrenergic Agonist Start: 01-08-2018 End: 10-08-2019 take 1 puff(s) by inhalation every twelve hours Mometasone-Formoterol (Dulera) 200-5 mcg/actuation HFA aerosol inhaler Discontinued 2 PUFF INHALATION Q12H 1 December 28, 2018 11:24am March 01, 2019 9:13am Start: 01-19-2017 take 2 puff(s) by in halation twice daily DULERA 200-5 MCG/ACT AERO 2 puffs INH Twice daily MOMETASONE FURO-FORMOTEROL FUM [id number] Rojelio White naproxen sodium 220 mg oral tablet (6 sources) Nonsteroidal Anti-inflammatory Drug End: 03-28-2016 take 2 tablets by mouth once daily ALEVE 220 MG CAPS Two tablets by mouth daily NAPROXEN SODIUM [id number] Denise Quevedo nicotine 4 mg inhalation solution (15 sources) Cholinergic Nicotinic Agonist Start: 04-06-2020 End: 07-15-2021 Nicotine Discontinued 1 INH INHALATION 4 to 6 times per day April 06, 2020 9:33am July 15, 2021 10:02am Start: 10-10-2016 End: 07-18-2017 EQ NICOTINE 14 MG/24HR PT24 1 patch daily NICOTINE [id number] Meri Snell LPN Start: 10-10-2016 EQ NICOTINE 14 MG/24HR PT24 1 patch daily NICOTINE [id number] Ester Heredia FERRYBOAT HELPER Start: 04-28-2016 End: 07-18-2017 EQ NICOTINE 4 MG LOZG 1 thre e times a day NICOTINE POLACRILEX [id number] Ester Heredia FERRYBOAT HELPER predniSONE 10 mg oral tablet (3 sources) Start: 02-10-2021 End: 07-15-2021 Prednisone Discontinued 10 MG PO daily February 10, 2021 11:25am July 15, 2021 10:02am take 4 tabs for three days, then 3 tabs for three days, then 2 tabs for three days, then 1 tab for 3 days Trelegy Ellipta 100 mcg-62.5 mcg-25 mcg/inh inhalation powder (2 sources) Start: 03-31-2023 End: 03-25-2024 take 1 dose by inhalation once daily Trelegy Ellipta 100 mcg-62.5 mcg-25 mcg/inh inhalation powder Dose = 1 puff(s), Inhalation, qDay, at the same time every day, # 1 EA, 11 Refill(s), [id number], 173, cm, 03/31/23 14:47:00 EDT, Height, kg, 03/31/23 14:47:00 EDT, Dosing Weight Start Date: 03/31/23 Stop Date: 03/25/24 Status: Ordered varenicline 0.5 mg oral tablet (6 sources) 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 Cholinergic Nicotinic 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 Start: 03-28-2016 End: 07-27-2016 CHANTIX 0.5 MG TABS 1 tab daily for 3 days, then 1 tab twice daily VARENICLINE TARTRATE [id number] 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 Problems Problem Classification Problem Date Documented Date Episodic/Chronic Acute bronchitis (3 sources) Acute bronchitis; Translations: [Acute bronchitis, unspecified] Episodic Allergic reactions (1 source) Allergy to bee venom 07-31-2024 Episodic Anxiety disorders (3 sources) Anxiety; Translations: [Anxiety disorder, unspecified] Chronic Asthma (13 sources) Asthma; Translations: [Unspecified asthma, uncomplicated] Onset: 09-29-2015 09-29-2015 Chronic Chronic obstructive pulmonary disease and bronchiectasis (13 sources) Mild chronic obstructive pulmonary disease; Translations: [Chronic obstructive pulmonary disease with acute lower respiratory infection] Onset: 09-01-2016 09-01-2016 Chronic Chronic obstructive pulmonary disease and bronchiectasis (3 sources) Bronchitis 02-07-2024 Episodic Conditions associated with dizziness or vertigo (10 sources) Vertigo; Translations: [Dizziness] 04-06-2018 Episodic Disorders of lipid metabolism (7 sources) Mixed hyperlipidemia 12-14-2020 Chronic Essential hypertension (7 sources) Hypertensive disorder 12-14-2020 Chronic Fever of unknown origin (7 sources) Fever 09-14-2021 Episodic Mood disorders (14 sources) Depressive disorder; Translations: [Depression] 12-14-2020 Chronic Nonspecific chest pain (4 sources) Chest pain 05-03-2022 Episodic Open wounds of extremities (2 sources) Laceration of left thumb; Translations: [Laceration without foreign body of left thumb without damage to nail, initial encounter] 07-28-2023 Episodic Other connective tissue disease (4 sources) Pain of right forearm 09-01-2022 Episodic Other lower respiratory disease (6 sources) Chronic cough; Translations: [Chronic cough] Onset: 06-30-2015 06-30-2015 Episodic Other lower respiratory disease (1 source) Pleuritic pain; Translations: [Pleurodynia] Onset: 11-27-2021 Episodic Other non-traumatic joint disorders (3 sources) Shoulder pain; Translations: [Pain in unspecified shoulder] Episodic Poisoning by nonmedicinal substances (1 source) Poisoning due to arthropod venom; Translations: [Toxic effect of venom of other arthropod, accidental (unintentional), initial encounter] Onset: 07-30-2024 Episodic Residual codes; unclassified (3 sources) Tobacco user; Translations: [Tobacco use] Episodic Residual codes; unclassified (3 sources) H/O Spinal surgery; Translations: [Other specified postprocedural states] Episodic Screening or history of mental health and substance abuse (3 sources) Tobacco dependence syndrome; Translations: [Nicotine dependence, unspecified, uncomplicated] Onset: 06-30-2015 06-30-2015 Chronic Substance-related disorders (5 sources) Cigarette smoker ; Translations: [Nicotine dependence, cigarettes, uncomplicated] Onset: 04-25-2024 Chronic Suicide and intentional self-inflicted injury (5 sources) Suicidal thoughts 05-03-2022 Episodic Superficial injury; contusion (2 sources) Contusion of chest; Translations: [Contusion of unspecified front wall of thorax, initial encounter] Onset: 11-27-2021 Episodic Unclassified (7 sources) Bipolar (qualifier value) 01-21-2014 Viral infection (3 sources) Disease caused by 2019-nCoV 01-17-2023 Results Test Name Value Interpretation Reference Range Facility MR/BMS.BPon 12-24-2024 MR/BMS.BP [address], [place] [address] OFFICE VISIT Date of Service: 12/24/24 MR#: [id number] Acct: [id number] Name: DEVORAH BRYAN Rep #: [id number] : 1970 Provider: Dr. Kareem Rodriguez se, DO Age/Sex: 54/M Location: [facility] [place].BP Status: Signed Intake Vital Signs 10/23/24 14:53 12/24/24 14:54 Height 5 ft 9 in 5 ft 9 in Weight: 134 lb BMI 19.8 BP 177/99 H 142/85 H Blood Pressure Location Lt brachial Lt brachial Position Sitting Sitting Respiration 16 16 Pulse 97 91 Pulse Source Monitor Monitor BP Intake Visit Reasons: 6wfu Accompanied by: Self Allergies bee venom protein (honey bee) Allergy (Severe, Verified 12/24/24 14:57) Anaphylaxis Medications ???Medication ???Instructions ???Recorded ???Confirmed ???Type epinephrine 0.3 mg/0.3 mL 0.3 mg subcut ONCE PRN BEE STINGS 01/08/18 12/24/24 History injection, auto-injector (EpiPen 2-Emily) albuterol sulfate 90 mcg/actuation 2 puff inhalation Q4H PRN 12/24/24 Rx aerosol inhaler (Ventolin HFA) shortness of breath or wheezing #18 grams doxazosin 4 mg tablet 4 mg PO DAILY 01/27/21 12/24/24 Hi story meclizine 25 mg tablet 25 mg PO QHS PRN VERTIGO 09/20/22 12/24/24 History mirtazapine 45 mg tablet 45 mg PO QHS 09/20/22 12/24/24 His tory fluticasone propionate 50 2 spray NASAL BID PRN ALLERGIES 12/24/24 History mcg/actuation nasal spray,suspension lisinopril 20 mg tablet 20 mg PO QDAY 04/25/24 12/24/24 Hi story fluticasone fur. 200 mcg-umeclid 1 inh inhalation Q24H #3 ea 12/24/24 Rx 62.5 mcg-vilant 25 mcg inhalat.powder (Trelegy Ellipta) PFSH Medical History (Updated 10/24/24 @ 07:[address] Kareem Wen, DO) PTSD (post-traumatic stress disorder) Major depressive disorder in partial remission Anxiety Depression Shoulder pain Chronic cough Tobacco abuse Asthma Stage 1 mild COPD by GOLD classification Surgical History Hx of tonsillectomy History of back surgery Family History (Updated 10/23/24 @ 15:09 by Liv Zavala) Father Dementia Grandfather Heart disease Grandmother Breast cancer Hypertension Other Alcoholism Mental disorder Social History (Updated 10/23/24 @ 15:08 by Liv Zavala) Smoking Status: Current every day smoker tobacco type: cigarettes second hand exposure: Yes alcohol intake: never substance use type: marijuana frequency: daily HPI History of Present Illness History provided by: patient HPI: Devorah Bryan is a 54 year old male who present today for follow up evaluation. Patient reports that he has been doing alright. Reports that work has been driving me bonkers. 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 Feels like the rental salesperson cares more about making money rather than doing quality work. Feels like he has not gotten things that were promised by the rental salesperson. 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 Continues to lean on his strong spirituality. Outside of work is doing well. Is still looking for a new place to live, but is able to stay where he is for the time being. Part of the difficulty finding somewhere new is that he currently has pets, in the form of a dog and a cat. No reported SI HI or AVH. Review of Systems Constitutional Denies: fever(s), chills, change in weight or fatigue Eyes Denies: change in vision or blurry vision Ears, Nose, Mouth, Throat Denies: throat pain, neck pain or change in hearing Cardiovascular Denies: chest pain, palpitations or dyspnea Respiratory Denies: dyspnea, cough or wheezing Gastrointestinal Denies: abdominal pain, nausea, vomiting, diarrhea or constipation Genitourinary Denies: dysuria or urinary frequency Musculoskeletal Denies: back pain, neck pain, joint pain or muscle weakness Integumentary/Breast Denies: rash or new lesions Neurological Denies: headache(s), dizziness or confusion Endocrine Denies: fatigue or excessive sweating Hematologic/Lymphati c Denies: easy bruising or easy bleeding Allergic/Immunologic Denies: wheezing Exam Mental Status Exam - Psych Appearance unkempt Attitude cooperative Activity/Motor Behavior MSE activity/motor behavior finding no adventitious movements Speech regular rate, regular volume and other (Verbose) Mood OK Affect congruent Thought Process linear, logical and coherent Thought Content no delusions and no hallucinations Suicidal Ideation none Homicidal Ideation none Attention intact Concentration intact Sensorium/Orientatio n awake, alert and oriented x3 Memory/Cognition other (appropriate for stated age) Insight good Judgement good Assessment Plan Assessme (more content not included)... Normal [facility] .Auto Diffon 11-19-2024 Basophil, Absolute 0.1 10 3/mcL Normal 0.0-0.2 [facility] Comment on above: Performed By: #### A DIFF, LIPID, CBC, VIDH, CMP, GFR, ANEU #### [address] [address] Basophils/100 WBC (Bld) 0.7 % Normal 0.0-2.5 [facility] Comment on above: Performed By: #### A DIFF, LIPID, CBC, VIDH, CMP, GFR, ANEU #### [address] [address] Eosinophil, Absolute 0.2 10 3/mcL Normal 0.0-0.7 [facility] Comment on above: Performed By: #### A DIFF, LIPID, CBC, VIDH, CMP, GFR, ANEU #### [address] [address] Eosinophils/100 WBC (Bld) 2.0 % Normal 0.0-7.0 [facility] Comment on above: Performed By: #### A DIFF, LIPID, CBC, VIDH, CMP, GFR, ANEU #### [address] [address] Lymphocyte, Absolute 1.9 10 3/mcL Normal 0.9-4.3 [facility] Comment on above: Performed By: #### A DIFF, LIPID, CBC, VIDH, CMP, GFR, ANEU #### [address] [address] Lymphocytes/100 WBC (Bld) 20.8 % Normal 20.0-40.0 [facility] Comment on above: Performed By: #### A DIFF, LIPID, CBC, VIDH, CMP, GFR, ANEU #### [address] [address] Monocyte, Absolute 0.6 10 3/mcL Normal 0.1-1.4 [facility] Comment on above: Performed By: #### A DIFF, LIPID, CBC, VIDH, CMP, GFR, ANEU #### [address] [address] Monocytes/100 WBC (Bld) 6.2 % Normal 2.0-13.0 [facility] Comment on above: Performed By: #### A DIFF, LIPID, CBC, VIDH, CMP, GFR, ANEU #### [address] [address] Neutrophils/100 WBC (Bld) 70.3 % Normal 50.0-75.0 [facility] Comment on above: Performed By: #### A DIFF, LIPID, CBC, VIDH, CMP, GFR, ANEU #### [address] [address] .GFRon 11-19-2024 GFR 83 ml/min/1.73sqm Normal [facility] Comment on above: Result Comment: GFR Population mean for , Non- Americans Ages 20-29 = 116 mL/min/1.73 sq.m. Ages 30-39 = 107 mL/min/1.73 sq.m. Ages 40-49 = 99 mL/min/1.73 sq.m. Ages 50-59 = 93 mL/min/1.73 sq.m. Ages 60-69 = 85 mL/min/1.73 sq.m. Ages 70+ = 75 mL/min/1.73 sq.m. Chronic Kidney Disease: Less than 60 mL/min/1.73 square meters End Stage Renal Disease: Less than 15 mL/min/1.73 square meters Performed By: #### A DIFF, LIPID, CBC, VIDH, CMP, GFR, ANEU #### [address] [address] GFR Non- 69 ml/min/1.73sqm Normal [facility] Comment on above: Result Comment: GFR Population mean for , Non- Americans Ages 20-29 = 116 mL/min/1.73 sq.m. Ages 30-39 = 107 mL/min/1.73 sq.m. Ages 40-49 = 99 mL/min/1.73 sq.m. Ages 50-59 = 93 mL/min/1.73 sq.m. Ages 60-69 = 85 mL/min/1.73 sq.m. Ages 70+ = 75 mL/min/1.73 sq.m. Chronic Kidney Disease: Less than 60 mL/min/1.73 square meters End Stage Renal Disease: Less than 15 mL/min/1.73 square meters Performed By: #### A DIFF, LIPID, CBC, VIDH, CMP, GFR, ANEU #### [address] [address] .NEUABSon 11-19-2024 Neutrophil, Absolute 6.3 10 3/mcL Normal 2.3-8.1 [facility] Comment on above: Performed By: #### A DIFF, LIPID, CBC, VIDH, CMP, GFR, ANEU #### [place] [address] CBCon 11-19-2024 Erythrocyte distribution width (RBC) [Ratio] 13.5 % Normal 11.5-15.5 [facility] Comment on above: Performed By: #### A DIFF, LIPID, CBC, VIDH, CMP, GFR, ANEU #### [place] [address] Hematocrit (Bld) [Volume fraction] 47.3 % Normal 40.0-52.0 [facility] Comment on above: Performed By: #### A DIFF, LIPID, CBC, VIDH, CMP, GFR, ANEU #### [place] [address] Hgb 16.1 G/dL Normal 13.0-17.5 [facility] Comment on above: Performed By: #### A DIFF, LIPID, CBC, VIDH, CMP, GFR, ANEU #### [address] [address] MCH (RBC) [Entitic mass] 29.9 pg Normal 27.0-33.0 [facility] Comment on above: Performed By: #### A DIFF, LIPID, CBC, VIDH, CMP, GFR, ANEU #### [place] [address] MCHC 34.1 G/dL Normal 32.0-36.0 [facility] Comment on above: Performed By: #### A DIFF, LIPID, CBC, VIDH, CMP, GFR, ANEU #### [place] [address] MCV (RBC) [Entitic vol] 87.6 fL Normal 81.0-100.0 [facility] Comment on above: Performed By: #### A DIFF, LIPID, CBC, VIDH, CMP, GFR, ANEU #### [place] [id number] Platelet 327 10 3/mcL Normal 150-450 [facility] Comment on above: Performed By: #### A DIFF, LIPID, CBC, VIDH, CMP, GFR, ANEU #### [address] [address] Platelet mean volume (Bld) [Entitic vol] 7.1 fL Normal 6.4-10.5 [facility] Comment on above: Performed By: #### A DIFF, LIPID, CBC, VIDH, CMP, GFR, ANEU #### [address] [address] RBC 5.40 10 6/mcL Normal 4.50-6.00 [facility] Comment on above: Performed By: #### A DIFF, LIPID, CBC, VIDH, CMP, GFR, ANEU #### [address] [address] WBC 9.0 10 3/mcL Normal 4.5-10.8 [facility] Comment on above: Performed By: #### A DIFF, LIPID, CBC, VIDH, CMP, GFR, ANEU #### [address] [address] CMPon 11-19-2024 Albumin Level 3.4 G/dL Low 3.5-5.0 [facility] Comment on above: Performed By: #### A DIFF, LIPID, CBC, VIDH, CMP, GFR, ANEU #### [address] [address] Albumin/Globulin [Mass ratio] 1.0 {ratio} Low 1.1-2.5 [facility] Comment on above: Performed By: #### A DIFF, LIPID, CBC, VIDH, CMP, GFR, ANEU #### [address] [address] ALP [Catalytic activity/Vol] 112 U/L Normal 40-135 [facility] Comment on above: Performed By: #### A DIFF, LIPID, CBC, VIDH, CMP, GFR, ANEU #### [address] [address] ALT [Catalytic activity/Vol] 22 U/L Normal 16-63 [facility] Comment on above: Performed By: #### A DIFF, LIPID, CBC, VIDH, CMP, GFR, ANEU #### [address] [address] AST [Catalytic activity/Vol] 12 U/L Normal 10-40 [facility] Comment on above: Performed By: #### A DIFF, LIPID, CBC, VIDH, CMP, GFR, ANEU #### [address] [address] Bili Total 0.3 mg/dL Normal 0.2-1.0 [facility] Comment on above: Result Comment: Use of this assay is not recommended for patients undergoing treatment with eltrombopag due to the potential for falsely elevated results. Performed By: #### A DIFF, LIPID, CBC, VIDH, CMP, GFR, ANEU #### [address] [address] BUN/Creatinine Ratio 16 ratio Normal 7-27 [facility] Comment on above: Performed By: #### A DIFF, LIPID, CBC, VIDH, CMP, GFR, ANEU #### [address] [address] Calcium [Mass/Vol] 9.1 mg/dL Normal 8.4-10.2 [facility] Comment on above: Performed By: #### A DIFF, LIPID, CBC, VIDH, CMP, GFR, ANEU #### [address] [address] Chloride [Moles/Vol] 102 mmol/L Normal 98-107 [facility] Comment on above: Performed By: #### A DIFF, LIPID, CBC, VIDH, CMP, GFR, ANEU #### [address] [address] CO2 [Moles/Vol] 29 mmol/L Normal 22-29 [facility] Comment on above: Performed By: #### A DIFF, LIPID, CBC, VIDH, CMP, GFR, ANEU #### [address] [address] Creatinine [Mass/Vol] 1.11 mg/dL Normal 0.70-1.30 [facility] Comment on above: Result Comment: Test ing performed on Siemens Dimension EXL analyzer using a modified kinetic Chad technique. Performed By: #### A DIFF, LIPID, CBC, VIDH, CMP, GFR, ANEU #### [address] [address] Electrolyte Balance 10.0 mEq/L Normal 4.0-15.0 [facility] Comment on above: Performed By: #### A DIFF, LIPID, CBC, VIDH, CMP, GFR, ANEU #### [address] [address] Globulin 3.4 G/dL Normal [facility] Comment on above: Performed By: #### A DIFF, LIPID, CBC, VIDH, CMP, GFR, ANEU #### [address] [address] Glucose [Mass/Vol] 87 mg/dL Normal 70-105 [facility] Comment on above: Performed By: #### A DIFF, LIPID, CBC, VIDH, CMP, GFR, ANEU #### [address] [address] Potassium [Moles/Vol] 4.2 mmol/L Normal 3.5-5.1 [facility] Comment on above: Performed By: #### A DIFF, LIPID, CBC, VIDH, CMP, GFR, ANEU #### [address] [address] Sodium [Moles/Vol] 141 mmol/L Normal 136-145 [facility] Comment on above: Performed By: #### A DIFF, LIPID, CBC, VIDH, CMP, GFR, ANEU #### [address] [address] Total Protein 6.8 G/dL Normal 6.4-8.2 [facility] Comment on above: Performed By: #### A DIFF, LIPID, CBC, VIDH, CMP, GFR, ANEU #### [address] [address] Urea nitrogen [Mass/Vol] 18 mg/dL Normal 7-18 [facility] Comment on above: Performed By: #### A DIFF, LIPID, CBC, VIDH, CMP, GFR, ANEU #### [facility] [address] [place], [place] [address] LABORATORYOrdered By: SYSTEM SYSTEM on 11-19-2024 25-hydroxyvitamin D3 [Mass/Vol] 32.0 ng/mL Invalid Interpretation Code AO ADM SS Comment on above: Interpretive Data: I nterpretive Values Based on Total 25(OH) Vitamin D: Deficient <20 ng/mL Insufficient 20 - <30 ng/mL Sufficient 30-100 ng/mL Albumin BCP dye [Mass/Vol] 3.4 G/dL Low 3.5 - 5.0 G/dL AO ADM SS Albumin/Globulin [Mass ratio] 1.0 {ratio} Low 1.1 - 2.5 ratio AO ADM SS ALP [Catalytic activity/Vol] 112 U/L Normal 40 - 135 U/L AO ADM SS ALT With P-5'-P [Catalytic activity/Vol] 22 U/L Normal 16 - 63 U/L AO ADM SS AST With P-5'-P [Catalytic activity/Vol] 12 U/L Normal 10 - 40 U/L AO ADM SS Basophils (Bld) [#/Vol] 0.1 103/mcL Normal 0.0 - 0.2 10^3/mcL AO Workflow SS Basophils/100 WBC (Bld) 0.7 % Normal 0.0 - 2.5 % AO Workflow SS Bilirubin [Mass/Vol] 0.3 mg/dL Normal 0.2 - 1 .0 mg/dL AO ADM SS Comment on above: Interpretive Data: U se of this assay is not recommended for patients undergoing treatment with eltrombopag due to the potential for falsely elevated results. Calcium [Mass/Vol] 9.1 mg/dL Normal 8.4 - 10. 2 mg/dL AO ADM SS Chloride [Moles/Vol] 102 mmol/L Normal 98 - 10 7 mmol/L AO ADM SS CO2 [Moles/Vol] 29 mmol/L Normal 22 - 29 mmol/L AO ADM SS Creatinine [Mass/Vol] 1.11 mg/dL Normal 0.70 - 1.30 mg/dL AO ADM SS Comment on above: Interpretive Data: T esting performed on Siemens Dimension EXL analyzer using a modified kinetic Chad technique. Electrolyte Balance 10.0 mEq/L Normal 4.0 - 15 .0 mEq/L AO ADM SS Eosinophil, Absolute 0.2 103/mcL Normal 0.0 - 0 .7 10^3/mcL AO Workflow SS Eosinophils/100 WBC (Bld) 2.0 % Normal 0.0 - 7.0 % AO Workflow SS Erythrocyte distribution width (RBC) [Ratio] 13.5 % Normal 11.5 - 15.5 % AO Workflow SS GFR/1.73 sq M.predicted among blacks MDRD (S/P/Bld) [Vol rate/Area] 83 ml/min/1.73sqm Invalid Interpretation Code AO Chemistry S Comment on above: Interpretive Data: GFR Population mean for , Non- Americans Ages 20-29 = 116 mL/min/1.73 sq.m. Ages 30-39 = 107 mL/min/1.73 sq.m. Ages 40-49 = 99 mL/min/1.73 sq.m. Ages 50-59 = 93 mL/min/1.73 sq.m. Ages 60-69 = 85 mL/min/1.73 sq.m. Ages 70+ = 75 mL/min/1.73 sq.m. Chronic Kidney Disease: Less than 60 mL/min/1.73 square meters End Stage Renal Disease: Less than 15 mL/min/1.73 square meters GFR/1.73 sq M.predicted among non-blacks MDRD (S/P/Bld) [Vol rate/Area] 69 ml/min/1.73sqm Invalid Interpretation Code AO Chemistry S Comment on above: Interpretive Data: GFR Population mean for , Non- Americans Ages 20-29 = 116 mL/min/1.73 sq.m. Ages 30-39 = 107 mL/min/1.73 sq.m. Ages 40-49 = 99 mL/min/1.73 sq.m. Ages 50-59 = 93 mL/min/1.73 sq.m. Ages 60-69 = 85 mL/min/1.73 sq.m. Ages 70+ = 75 mL/min/1.73 sq.m. Chronic Kidney Disease: Less than 60 mL/min/1.73 square meters End Stage Renal Disease: Less than 15 mL/min/1.73 square meters Globulin 3.4 G/dL Invalid Interpretation Code AO ADM SS Glucose [Mass/Vol] 87 mg/dL Normal 70 - 105 mg/dL AO ADM SS Hematocrit (Bld) [Volume fraction] 47.3 % Normal 40.0 - 52.0 % AO Workflow SS Hemoglobin (Bld) [Mass/Vol] 16.1 G/dL Normal 13.0 - 17.5 G/dL AO Workflow SS Lymphocytes (Bld) [#/Vol] 1.9 103/mcL Normal 0.9 - 4.3 10^3/mcL AO Workflow SS Lymphocytes/100 WBC (Bld) 20.8 % Normal 20.0 - 40.0 % AO Workflow SS MCH (RBC) [Entitic mass] 29.9 pg Normal 27.0 - 33.0 pg AO Workflow SS MCHC 34.1 G/dL Normal 32.0 - 36.0 G/dL AO Workflow SS MCV (RBC) [Entitic vol] 87.6 fL Normal 81.0 - 100.0 fL AO Workflow SS Monocytes (Bld) [#/Vol] 0.6 103/mcL Normal 0.1 - 1.4 10^3/mcL AO Workflow SS Monocytes/100 WBC (Bld) 6.2 % Normal 2.0 - 13.0 % AO Workflow SS Neutrophils (Bld) [#/Vol] 6.3 103/mcL Normal 2.3 - 8.1 10^3/mcL AO Workflow SS Neutrophils/100 WBC (Bld) 70.3 % Normal 50.0 - 75.0 % AO Workflow SS Platelet mean volume (Bld) [Entitic vol] 7.1 fL Normal 6.4 - 10.5 fL AO Workflow SS Platelets (Bld) [#/Vol] 327 103/mcL Normal 150 - 450 10^3/mcL AO Workflow SS Potassium [Moles/Vol] 4.2 mmol/L Normal 3.5 - 5.1 mmol/L AO ADM SS Protein [Mass/Vol] 6.8 G/dL Normal 6.4 - 8.2 G/dL AO ADM SS RBC (Bld) [#/Vol] 5.40 106/mcL Normal 4.50 - 6.0 0 10^6/mcL AO Workflow SS Sodium [Moles/Vol] 141 mmol/L Normal 136 - 145 mmol/L AO ADM SS Urea nitrogen [Mass/Vol] 18 mg/dL Normal 7 - 18 mg/dL AO ADM SS Urea nitrogen/Creatinine [Mass ratio] 16 ratio Normal 7 - 27 ratio AO ADM SS WBC (Bld) [#/Vol] 9.0 103/mcL Normal 4.5 - 10.8 10^3/mcL AO Workflow SS LABORATORYOrdered By: Ariela Gallagher on 11-19-2024 Cholesterol [Mass/Vol] 223 mg/dL High 0 - 200 mg/dL AO ADM SS Comment on above: Interpretive Data: C holesterol Reference Interval: Less than 200 Desirable 200-239 Borderline high risk 240 and above High risk Cholesterol in HDL [Mass/Vol] 45 mg/dL Normal 40 - 60 mg/dL AO ADM SS Cholesterol in LDL [Mass/Vol] 162 mg/dL High 0 - 130 mg/dL AO ADM SS Triglyceride [Mass/Vol] 79 mg/dL Normal 0 - 150 mg/dL AO ADM SS Comment on above: Interpretive Data: T riglyceride Reference Interval: Less than 150 Normal 150-199 Borderline high risk 200-499 High risk 500 or higher Very high risk LIPIDon 11-19-2024 Cholesterol [Mass/Vol] 223 mg/dL High 0-200 [facility] Comment on above: Result Comment: Chol esterol Reference Interval: Less than 200 Desirable 200-239 Borderline high risk 240 and above High risk Performed By: #### A DIFF, LIPID, CBC, VIDH, CMP, GFR, ANEU #### [address] [address] Cholesterol in HDL [Mass/Vol] 45 mg/dL Normal 40-60 [facility] Comment on above: Performed By: #### A DIFF, LIPID, CBC, VIDH, CMP, GFR, ANEU #### [place] [address] [place], [place] [address] Cholesterol in LDL [Mass/Vol] 162 mg/dL High 0-130 [facility] Comment on above: Performed By: #### A DIFF, LIPID, CBC, VIDH, CMP, GFR, ANEU #### [place] [address] [place], [place] [address] Triglyceride [Mass/Vol] 79 mg/dL Normal 0-150 [facility] Comment on above: Result Comment: Trig lyceride Reference Interval: Less than 150 Normal 150-199 Borderline high risk 200-499 High risk 500 or higher Very high risk Performed By: #### A DIFF, LIPID, CBC, VIDH, CMP, GFR, ANEU #### [place] [address] [place], [place] [address] VIDHon 11-19-2024 Vit. D 25-Hydroxy 32.0 ng/mL Normal [facility] Comment on above: Result Comment: Inte rpretive Values Based on Total 25(OH) Vitamin D: Deficient <20 ng/mL Insufficient 20 - <30 ng/mL Sufficient 30-100 ng/mL Performed By: #### A DIFF, LIPID, CBC, VIDH, CMP, GFR, ANEU #### [place] [address] [place], [place] [address] MR/BMS.BPon 10-23-2024 MR/BMS.BP [address], [place] [address] OFFICE VISIT Date of Service: 10/23/24 MR#: [id number] Acct: [id number] Name: DEVORAH BRYAN Rep #: [id number] : 1970 Provider: Dr. Kareem Rodriguez se, DO Age/Sex: 54/M Location: [facility] [place].BP Status: Signed Intake Vital Signs 09/20/22 08:08 04/25/24 12:34 10/23/24 14:53 Height 5 ft 8.5 in 5 ft 8.5 in 5 ft 9 in Weight: 142 lb 134 lb BMI 21.2 19.8 BP 109/65 177/99 H Blood Pressure Location Rt brachial Lt brachial Position Sitting Sitting Respiration 16 16 Pulse 80 97 Pulse Source Monitor Monitor Temp 97.8 F Temperature Source Temporal Artery Pulse Oximetry (%) 94 Oxygen Delivery Method room air BP Intake Visit Reasons: PTSD/Childhood trauma Accompanied by: Self Allergies bee venom protein (honey bee) Allergy (Severe, Verified 10/23/24 14:58) Anaphylaxis Medications ???Medication ???Instructions ???Recorded ???Confirmed ???Type epinephrine 0.3 mg/0.3 mL 0.3 mg subcut ONCE PRN BEE STINGS 01/08/18 10/23/24 History injection, auto-injector (EpiPen 2-Emily) albuterol sulfate 90 mcg/actuation 2 puff inhalation Q4H PRN 01/15/18 10/23/24 Rx aerosol inhaler (Ventolin HFA) shortness of breath or wheezing #18 grams doxazosin 4 mg tablet 4 mg PO DAILY 01/27/21 10/23/24 History meclizine 25 mg tablet 25 mg PO QHS PRN VERTIGO 09/20/22 10/23/24 History mirtazapine 45 mg tablet 45 mg PO QHS 09/20/22 10/23/24 History fluticasone propionate 50 2 spray NASAL BID PRN ALLERGIES 04/25/24 10/23/24 History mcg/actuation nasal spray,suspension lisinopril 20 mg tablet 20 mg PO QDAY 04/25/24 10/23/24 History fluticasone fur. 200 mcg-umeclid 1 inh inhalation Q24H #3 ea 06/25/24 10/23/24 Rx 62.5 mcg-vilant 25 mcg inhalat.powder (Trelegy Ellipta) PFSH Medical History (Updated 10/24/24 @ 07:[address] Kareem Wen, DO) PTSD (post-traumatic stress disorder) Major depressive disorder in partial remission Anxiety Depression Shoulder pain Chronic cough Tobacco abuse Asthma Stage 1 mild COPD by GOLD classification Surgical History Hx of tonsillectomy History of back surgery Family History (Updated 10/23/24 @ 15:09 by Liv Zavala) Father Dementia Grandfather Heart disease Grandmother Breast cancer Hypertension Other Alcoholism Mental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 laboratories certified under the Clinical Laboratory Improvement Amendments of 1988 (CLIA), 42 U.S.C. 263a, to perform moderate and high complexity tests. Invalid Interpretation Code AO Auto Urine SS LABORATORYOrdered By: Ariela Gallagher on 09-15-2021 ADMITTED TO INTENSIVE CARE UNIT FOR CONDITION OF INTEREST:FIND:PT:^PAT IENT:ORD: No (09/15/21 12:06 PM) Invalid Interpretation Code AO Auto Urine SS EMPLOYED IN A HEALTHCARE SETTING:FIND:PT:^VIKY ENT:ORD: No (09/15/21 12:06 PM) Invalid Interpretation Code AO Auto Urine SS FIRST TEST FOR CONDITION OF INTEREST:FIND:PT:^PAT IENT:ORD: No (09/15/21 12:06 PM) Invalid Interpretation Code AO Auto Urine SS HAS SYMPTOMS RELATED TO CONDITION OF INTEREST:FIND:PT:^PAT IENT:ORD: Yes (09/15/21 12:06 PM) Invalid Interpretation Code AO Auto Urine SS Illness or injury onset date and time [id number] Invalid Interpretation Code AO Auto Urine SS Patient was hospitalized because of this condition No (09/15/21 12:06 PM) Invalid Interpretation Code AO Auto Urine SS status Not (09/15/21 12:06 PM) Invalid Interpretation Code AO Auto Urine SS RESIDES IN A CONGREGATE CARE SETTING:FIND:PT:^VIKY ENT:ORD: No (09/15/21 12:06 PM) Invalid Interpretation Code AO Auto Urine SS SARS-CoV-2 (COVID-19) RNA SHERRY+probe Ql (Resp) Positive *ABN* (09/15/21 12:06 PM) Invalid Interpretation Code Negative AO Auto Urine SS SARS-CoV-2 (COVID-19) RNA SHERRY+probe Ql (Unsp spec) Positive results are indicative of the presence of SARS-CoV-2 RNA; clinical correlation with patient history and other diagnostic information is necessary to determine patient infection status. Positive results do not rule out bacterial infection or co-infection with other viruses. The agent detected may not be the definite cause of disease. Laboratories within the [facility] and its territories are required to report all positive results to the appropriate public health authorities.Detectio n of analyte target(s) does not imply that the corresponding virus(es) are infectious or are the causative agents for clinical symptoms.There is a risk of false positive values resulting from cross-contamination by target organisms, their nucleic acids or amplified product, or from non-specific signals in the assay.CLAUDIA SARS-CoV-2 Assay is a Real-Time reverse-transcriptas e polymerase chain reaction (RT-PCR) based qualitative in vitro diagnostic test intended for the qualitative detection of nucleic acid from the SARS-CoV-2 in nasopharyngeal swab specimens collected from individuals suspected of COVID-19 by their healthcare provider. Testing is limited to laboratories certified under the Clinical Laboratory Improvement Amendments of 1988 (CLIA), 42 U.S.C. 263a, to perform moderate and high complexity tests. Invalid Interpretation Code AO Auto Urine SS LABORATORYOrdered By: Katehrine Oconnell on 09-15-2021 FLUAV RNA SHERRY+probe Ql (Upper resp) Negative (09/15/21 12:06 PM) Invalid Interpretation Code Negative AO Auto Urine SS FLUBV RNA SHERRY+probe Ql (Upper resp) Negative (09/15/21 12:06 PM) Invalid Interpretation Code Negative AO Auto Urine SS RSV RNA SHERRY+probe Ql (Upper resp) Negative (09/15/21 12:06 PM) Invalid Interpretation Code Negative AO Auto Urine SS Office Visit: COPD & asthmao n 09-12-2017 Documentation of current medications (procedure) Done Invalid Interpretation Code [facility] Work Phone: Fall risk assessment No Invalid Interpretation Code [facility] [place] Work Phone: Smoking cessation education (procedure) yes Invalid Interpretation Code [facility] Work Phone: Tobacco smoking status NHIS Never Invalid Interpretation Code [facility] Work Phone: Tobacco use [facility] Current every day smoker Invalid Interpretation Code [facility] Work Phone: Vital Signs Date Time Vital Sign Value Performing Clinician Facility 07-30-2024 08:49-0400 Body temperature 96.98 [degF] DR AMY BABCOCK MD [facility] 07-30-2024 08:49-0400 Body weight 61.[address] AMY BABCOCK MD [facility] 07-30-2024 08:49-0400 Diastolic Blood Pressure Non-Invasive 79 mm[Hg] DR AMY BABCOCK MD [facility] 07-30-2024 08:49-0400 Heart rate 73 /min DR AMY BABCOCK MD [facility] 07-30-2024 08:49-0400 Respiratory rate 16 /min DR AMY BABCOCK MD [facility] 07-30-2024 08:49-0400 Systolic Blood Pressure Non-Invasive 122 mm[Hg] DR AMY BABCOCK MD [facility] 07-28-2023 07:45-0400 Body temperature 97.59 [degF] Carmen Bynum MD Work Phone: [facility] 07-28-2023 07:45-0400 Diastolic blood pressure 86 mm[Hg] Carmen Bynum MD Work Phone: [facility] 07-28-2023 07:45-0400 Heart rate 102 /min Carmen Bynum MD Work Phone: [facility] 07-28-2023 07:45-0400 Respiratory rate 16 /min Carmen Bynum MD Work Phone: [facility] 07-28-2023 07:45-0400 SaO2% (BldA) [Mass fraction] 95 % Carmen Bynum MD Work Phone: [facility] 07-28-2023 07:45-0400 Systolic blood pressure 117 mm[Hg] Carmen Bynum MD Work Phone: [facility] 03-08-2022 09:30-0400 Heart rate 70 /min Dr. Kareem Joyner Work Phone: [facility] Work Phone: 03-08-2022 09:30-0400 SaO2% (BldA) [Mass fraction] 97 % Dr. Kareem Joyner Work Phone: [facility] Work Phone: 11-27-2021 20:08-0500 Body temperature 98.06 [degF] DR PRAVEENA CABEZAS MD [facility] 11-27-2021 20:08-0500 Diastolic blood pressure 89 mm[Hg] DR PRAVEENA CABEZAS MD [facility] 11-27-2021 20:08-0500 Heart rate 93 /min DR PRAVEENA CABEZAS MD [facility] 11-27-2021 20:08-0500 Mean blood pressure 114 mm[Hg] DR PRAVEENA CABEZAS MD [facility] 11-27-2021 20:08-0500 Respiratory rate 16 /min DR PRAVEENA CABEZAS MD [facility] 11-27-2021 20:08-0500 Systolic blood pressure 165 mm[Hg] DR PRAVEENA CABEZAS MD [facility] 07-18-2017 06:45-0400 BMI (Body Mass Index) 18.46 kg/m2 Merishreya Snell COLLATOR OPERATOR [facility] Work Phone: 07-18-2017 06:45-0400 Body Temperature 96.6 [degF] Meri Snell COLLATOR OPERATOR [facility] Work Phone: 07-18-2017 06:45-0400 BP Diastolic 91 mm[Hg] Meri Snell COLLATOR OPERATOR [facility] Work Phone: 07-18-2017 06:45-0400 BP Systolic 151 mm[Hg] Meri Snell COLLATOR OPERATOR [facility] Work Phone: 07-18-2017 06:45-0400 Height 175.26 cm Meri Snell COLLATOR OPERATOR [facility] Work Phone: 07-18-2017 06:45-0400 Pulse (Heart Rate) 67 /min Meri Snell COLLATOR OPERATOR [facility] Work Phone: 07-18-2017 06:45-0400 Respiratory Rate 18 /min Meri Snell COLLATOR OPERATOR [facility] Work Phone: 07-18-2017 06:45-0400 Weight 56.7 kg Meri Snell COLLATOR OPERATOR [facility] Work Phone: 07-27-2016 08:20-0400 Body Temperature 97.34 [degF] Meri Snell COLLATOR OPERATOR [facility] Work Phone: 07-27-2016 08:20-0400 BSA (Body Surface Area) 1.7 m2 Meri Snell COLLATOR OPERATOR [facility] Work Phone: 07-27-2016 08:20-0400 Height 175.26 cm Meri Snell YIMI [facility] Work Phone: 07-27-2016 08:20-0400 Weight 57.73 kg Meri Snell YIMI [facility] Work Phone: Encounters Encounter Date Encounter Type Care Provider Facility Start: 04-08-2025 ambulatory Ester Heredia MANAGER IN TRAINING Fac ility:[facility] Start: 12-24-2024 End: 12-24-2024 ambulatory Kareem Wen Facility:[facility] Start: 11-19-2024 End: 11-19-2024 ambulatory KAREEM JOYNER MD Facility:[facility] Start: 11-19-2024 End: 11-19-2024 Patient encounter procedure KAREEM JOYNER MD [facility] Start: 10-23-2024 End: 10-23-2024 ambulatory Kareem Joyner Facility:[facility] Start: 07-30-2024 End: 07-30-2024 Emergency department patient visit DR AMY BABCOCK MD [facility] Start: 04-25-2024 End: 04-25-2024 ambulatory Kareem Joyner Facility:[facility] Start: 04-17-2024 End: 04-17-2024 ambulatory KAREEM JOYNER MD Facility: Start: 04-17-2024 End: 04-17-2024 Patient encounter procedure KAREEM JOYNER MD [facility] Start: 07-28-2023 End: 07-28-2023 Emergency department patient visit Carmen Bynum MD Work Phone: [facility] Comment on above: Laceration of left t humb without foreign body without damage to nail, initial encounter (Primary Dx) Start: 10-01-2022 End: 10-01-2022 Patient encounter procedure KAREEM JOYNER MD [facility] Start: 09-03-2022 End: 09-03-2022 ambulatory [facility] Work Phone: Start: 09-03-2022 End: 09-03-2022 Patient encounter procedure [facility] Start: 05-05-2022 End: 05-05-[address] SAQIB WILSON DO [facility] Start: 03-09-2022 Non-patient / Non-visit Dr. Garnica Work Phone: [facility] Start: 03-08-2022 End: 03-08-[address] Kareem Joyner Work Phone: [facility] Start: 03-01-2022 Non-patient / Non-visit Dr. Garnica Work Phone: [facility] Start: 03-01-2022 End: 03-01-[address] Kareem Joyner Work Phone: [facility] Start: 11-27-2021 End: 11-27-2021 Emergency department patient visit DR PRAVEENA CABEZAS MD [facility] Start: 09-15-2021 End: 09-15-2021 Patient encounter procedure MANASA QUARLES APRN-FERRYBOAT HELPER [facility] Procedures Date Procedure Procedure Detail Performing Clinician Start: 07-28-2023 Simple repair scalp/neck/ax/genit/trunk 2.5cm/< Carmen Bynum MD Work Phone: Start: 09-03-2022 CT of chest Start: 04-20-2016 End: 07-27-2016 Follow Up Appt 3 months Ester salazar FERRYBOAT HELPER Work Phone: Start: 03-28-2016 End: 07-25-2016 Follow up Appt 1 week Ester Heredia BOSSMAN Work Phone: Start: 09-29-2015 End: 07-25-2016 [facility] Rojelio White Work Phone: Start: 09-29-2015 End: 07-25-2016 Follow Up Appt 6 months Rojelio White Work Phone: Start: 06-30-2015 End: 07-25-2016 Follow Up Appt 3 months Rojelio White Work Phone: Start: 06-30-2015 End: 07-25-2016 Pulmonary Function Test - complete Rojelio White Work Phone: Start: 06-30-2015 End: 06-30-2015 Smoking cessation education Rojelio White Work Phone: History of tonsillectomy Hx of tonsillect jase Dr. Kareem Joyner Work Phone: Laminectomy MANASA QUARLES DEBUBBLIZER-FERRYBOAT HELPER Tonsillectomy and adenoidectomy MANASA QUARLES DEBUBBLIZER-FERRYBOAT HELPER Plan of Treatment Date Care Activity Detail Author Start: 07-07-2023 Influenza vaccination Influenza Vaccine (#1) [facility] Start: 01-15-2018 End: 01-15-2018 Appointment Appointment [facility] gurjit Ackerman Work Phone: Start: 01-04-2018 End: 07-18-2017 Pulmonary Function Test - complete Pulmonary Function Test - complete [facility] [place] Work Phone: Start: 2018 Zoster Vaccines (1 of 2) Zoster Vaccines (1 of 2) [facility] Start: 07-25-2017 End: 07-26-2017 Other Referral Other Referral Services [facility], [address], [place], [address] [facility] [place] Work Phone: Start: 07-18-2017 End: 07-18-2017 Appointment Appointment [facility] Work Phone: Start: 07-18-2017 End: 07-18-2017 [facility] [place] Work Phone: Start: 07-18-2017 End: 07-18-2017 Follow Up Appt 6 months Follow Up Appt 6 months [facility] [place] Work Phone: Start: 01-19-2017 End: 01-19-2017 [facility] Work Phone: Start: 01-19-2017 End: 01-19-2017 Follow Up Appt 6 months Follow Up Appt 6 months [facility] Work Phone: Start: 07-27-2016 End: 07-27-2016 Follow Up Appt 6 months Follow Up Appt 6 months [facility] Work Phone: Start: 04-20-2016 End: 07-27-2016 Follow Up Appt 3 months Follow Up Appt 3 months [facility] Work Phone: Start: 03-28-2016 End: 07-25-2016 Follow up Appt 1 week Follow up Appt 1 week [facility] [place] Work Phone: Start: 09-29-2015 End: 07-25-2016 [facility] [place] Work Phone: Start: 09-29-2015 End: 07-25-2016 Follow Up Appt 6 months Follow Up Appt 6 months [facility] Work Phone: Start: 06-30-2015 End: 07-25-2016 Follow Up Appt 3 months Follow Up Appt 3 months [facility] [place] Work Phone: Start: 06-30-2015 End: 07-25-2016 Pulmonary Function Test - complete Pulmonary Function Test - complete [facility] Work Phone: Start: 1987 DTaP/Tdap/Td Vaccines (1 - Tdap) DTaP/Tdap/Td Vaccines (1 - Tdap) [facility] Start: 1986 Hepatitis C screening Hepatitis C Screening [facility] Start: 1980 Depression Screening Depression Screening [facility] Start: 1974 Pneumococcal Vaccine: Pediatrics (0 to 5 Years) and At-Risk Patients (6 to 64 Years) (1 - PCV) Pneumococcal Vaccine: Pediatrics (0 to 5 Years) and At-Risk Patients (6 to 64 Years) (1 - PCV) [facility] Start: 1969 MMR Vaccines (1 of 1 - Standard series) MMR Vaccines (1 of 1 - Standard series) [facility] Start: 1968 COVID-19 Vaccine (#1) COVID-19 Vaccine (#1) [facility] Start: 1968 Hepatitis B Vaccines (1 of 3 - 3-dose series) Hepatitis B Vaccines (1 of 3 - 3-dose series) [facility] Start: 1968 HIV screening HIV Screening [facility] Start: 1968 Lipid panel Lipid Panel [facility] Start: 1968 Screening for malignant neoplasm of colon [facility] Patient Education Mometasone%2FF ormoterol% 20(Inhalation)%20(Aeroso l%20Powder) [facility] Work Phone: Payers Date Payer Category Payer Unknown [id number] 2024 Private Health Insurance [id number] 2024 Private Health Insurance [id number] 2024 Self-pay [id number] 2022 Medicaid [employer] ODM [id number] 2022-Present [phone] [address] [place] [address] Medicaid HMO [id number] 1968 Unknown [id number] 1968 Unknown [id number] 1968 Unknown [id number] Unknown [id number] Unknown [id number] Unknown [id number] Unknown [id number] Unknown [id number] Social History Date Type Detail Facility Start: 02-20-2019 End: 06-17-2022 Light tobacco smoker (finding) [facility] Sex Assigned At [facility] Start: 11-02-2021 End: 07-28-2023 Tobacco smoking status NHIS Unknown if ever smoked [facility] Work Phone: Start: 03-01-2019 Cigarettes [facility] Work Phone: Start: 1970 Sex Assigned At Male [facility] Work Phone: Start: 07-28-2023 Alcohol intake Lifetime non-d jan (finding) [facility] Start: 1970 Sex Assigned At Not on file [facility] Gender identity Not on file [facility] Start: 07-18-2023 End: 07-28-2023 Exposure to SARS-CoV-2 (event) Not sure [facility] Start: 01-21-2014 Sex Male (finding) [facility] Functional Status Date Assessment Result Facility 07-30-2024 Functional Status ID band on, Call device within reach, Bed in low position, Wheels locked [facility] Mental Status Date Assessment Result Facility 07-30-2024 Mental Status Oriented x 4 Josse Diallo Clinical Notes 11-27-2021 to 07-30-2024 Carmen Bynum MD - 07/28/2023 7:36 AM Sara Thomas RN - 07/28/2023 7:36 AM Sara Thomas RN - 07/28/2023 7:36 AM Tiffanie Bynum MD - 07/28/2023 7:36 AM EDTLaboratoryLaboratory Note Date & Type Note Facility 07-30-2024 Hospital Discharge instructions Patient Education 07/30/2024 09:09:04 Insect Bites and Stings Insect, Spider, and Scorpion Bites and Stings The black (top) and brown recluse (bottom) are two poisonous spiders found in the [place]. Most insect bites are harmless and cause only minor swelling or itching. But if you re allergic to insects such as wasps or bees, a sting can cause a life-threatening allergic reaction. Some ticks can carry and transmit serious diseases. The venom (poison) from scorpions and certain spiders can also be deadly, although this is rare. Knowing when to seek emergency care could save your life. When to go to the emergency room (ER) Scorpion sting Bite from a black, red, or brown spider or brown recluse spider Severe pain or swelling at the site of bite A tick that is embedded in your skin and can not be easily removed at home Signs of an allergic reaction such as: oHives oSwelling of your eyes, lips, or the inside of your throat oTrouble breathing oDizziness or confusion What to expect in the ER If you re having trouble breathing, you ll be given oxygen through a mask. In case of severe breathing difficulty, you may have a tube inserted in your throat and be placed on a ventilator (breathing machine). If you are having a severe allergic reaction from a sting (called anaphylaxis), you may be given a shot of epinephrine. If it is known that you are allergic to bee or wasp stings, your doctor may give you a prescription for an epi-pen that you can keep with you at all times in case of a sting. You may receive antivenin (a substance that reverses the effects of poison) for some spider bites and scorpion stings. Because antivenin can sometimes cause other problems, your doctor will weigh the risks and benefits of this treatment. Steroids such as prednisone are often used to treat allergic reactions. In many cases, your doctor will also prescribe an antihistamine to help relieve itching. Easing symptoms of an insect bite or sting Try to remove a stinger you can see. Use your fingernail, a knife edge, or credit card to scrape against the skin. Do not squeeze or pull. Apply ice or a cold compress to reduce pain and swelling (keep a thin cloth between the cold source and the skin). [id number] [employer]. [address] [place] [address], [place] [address]. All rights reserved. This information is not intended as a substitute for professional medical care. Always follow your healthcare professional's instructions. Follow Up Care 07/30/2024 08:46:44 With:KAREEM JOYNER Address: [address] [place], [place] [address] (1) When:2-4 days Comments:Follow-up closely with your doctor, return if any worsening or concerning symptoms as discussed. [facility] 07-30-2024 Note Discharge Instructions Thank you for allowing [facility] to assist you with your healthcare needs. The following is important discharge information regarding your hospital visit. Diagnosis from Today's Visit Insect sting What to Do Next Instructions from Your Care Team No qualifying data available. Post Acute Orders No qualifying data available. You Need to Schedule the Following Appointments Follow Up with KAREEM JOYNER When:Within 2-4 days Where:[address] [place], [place] [id number]- Business (1) Additional Information: Follow-up closely with your doctor, return if any worsening or concerning symptoms as discussed. Allergies Bee Stings No Known Medication Allergies Medications Please ask your primary doctor or pharmacist before taking any other medication not listed, including over the counter drugs, herbal medications, vitamins and or supplements as they may interact with your home medications. What How Much When Why Instructions Last Dose Unchanged albuterol (Ventolin HFA MDI (90 mcg/ inh) inhalation aerosol) 2 puff(s) by inhalation Every 4 hours as needed for as needed for wheezing Unchanged doxazosin (doxazosin 4 mg oral tablet) 1 tab(s) by mouth Every day COPD (chronic obstructive pulmonary disease) with acute lower respiratory infection Mixed hyperlipidemia Unchanged EPINEPHrine (EpiPen 2-Emily 0.3 mg injectable kit) 1 kit Intramuscular As Directed as needed for Allergic reaction Unchanged fluticasone nasal (fluticasone 50 mcg/ inh NASAL spray) 2 spray(s) each nostril Once a day (in the morning) Duration: 90 Days Unchanged fluticasone/ umeclidinium/ vilanterol (Trelegy Ellipta 100 mcg-62.5 mcg-25 mcg/ inh inhalation powder) 1 puff(s) by inhalation Once a day Duration: 30 Days at the same time every day Unchanged hydrochlorothiazide-lisinopril (hydrochlorothiazide-lisinopril 25 mg-20 mg oral tablet) 1 tab(s) by mouth Every day Unchanged lisinopril (lisinopril 20 mg oral tablet) 1 tab(s) by mouth Once a day COPD (chronic obstructive pulmonary disease) with acute lower respiratory infection Mixed hyperlipidemia Unchanged meclizine (meclizine 25 mg oral tablet) 1 tab(s) by mouth Three (3) times a day Unchanged mirtazapine (mirtazapine 45 mg oral tablet) 1 tab(s) by mouth Daily at bedtime take 1 tablet by mouth at bedtime Please take this list to your next doctor s visit. Bring all medications you take, including over the counter medications, herbals and other supplements with you to your doctor s visit. Patients and families are reminded to discard old lists and to update any records with all medication providers or retail pharmacies. Education Materials Insect, Spider, and Scorpion Bites and Stings The black (top) and brown recluse (bottom) are two poisonous spiders found in the [place]. Most insect bites are harmless and cause only minor swelling or itching. But if you re allergic to insects such as wasps or bees, a sting can cause a life-threatening allergic reaction. Some ticks can carry and transmit serious diseases. The venom (poison) from scorpions and certain spiders can also be deadly, although this is rare. Knowing when to seek emergency care could save your life. When to go to the emergency room (ER) Scorpion sting Bite from a black, red, or brown spider or brown recluse spider Severe pain or swelling at the site of bite A tick that is embedded in your skin and can not be easily removed at home Signs of an allergic reaction such as: oHives oSwelling of your eyes, lips, or the inside of your throat oTrouble breathing oDizziness or confusion What to expect in the ER If you re having trouble breathing, you ll be given oxygen through a mask. In case of severe breathing difficulty, you may have a tube inserted in your throat and be placed on a ventilator (breathing machine). If you are having a severe allergic reaction from a sting (called anaphylaxis), you may be given a shot of epinephrine. If it is known that you are allergic to bee or wasp stings, your doctor may give you a prescription for an epi-pen that you can keep with you at all times in case of a sting. You may receive antivenin (a substance that reverses the effects of poison) for some spider bites and scorpion stings. Because antivenin can sometimes cause other problems, your doctor will weigh the risks and benefits of this treatment. Steroids such as prednisone are often used to treat allergic reactions. In many cases, your doctor will also prescribe an antihistamine to help relieve itching. Easing symptoms of an insect bite or sting Try to remove a stinger you can see. Use your fingernail, a knife edge, or credit card to scrape against the skin. Do not squeeze or pull. Apply ice or a cold compress to reduce pain and swelling (keep a thin cloth between the cold source and the skin). 6742-7895 [employer]. [address] [place] [address]. All rights reserved. This information is not intended as a substitute for professional medical care. Always follow your healthcare professional's instructions. Additional Information VACCINATE! IT SAVES LIVES! Members of the community who have not yet received the COVID-19 vaccine and would like to receive it can visit one of [facility] vaccine clinics. There are many vaccine clinic locations within the [facility]. For locations and available times, please visit [email or web address] [email or web address] It is important to note that some COVID mobile vaccine clinics are held outdoors and may be canceled in rainy or stormy conditions. To learn more about pediatric vaccinations (ages 5-11), we invite you to visit the [facility] webpage. https://www.[email or web address].org/p ages/7058-Rdjoe-Jrpsxwmydlp-Freq jbppnm-Rmjrd-Byzjivehk.html To learn more about the COVID-19 vaccine, we invite you to visit the CDC website for a list of frequently asked questions. https://www.cdc.gov/coronavirus/ 2019-ncov/vaccines/faq.html [facility] Patient Portal Access Instructions: Stay connected with your healthcare team and access your personal medical information anytime with the [facility] Patient Portal. If you would like a full copy of your medical records please contact the [facility] Medical Records Department Monday through Monday between 8a.m. and 4:30p.m. Please follow the directions below to access the portal: 1.Access the email account you provided upon registration to the [facility].2.Look for an invitation email from [facility].3.Open the email and access the invitation link: Accept Invitation to [facility]4.Fill in the required larry to create your account. Sign into [email or web address] with your username and password that you created in the above steps to stay up to date. You can then view a summary of results, a summary of your visits, and the ability to download your summaries to your computer or send the information securely to a physician. Remember that your healthcare information is confidential, so carefully consider who you will allow to register on the [facility] Patient Portal for access to your information. You can also access the [facility] Patient Portal on the [employer] jacinto. Simply click on Health Records under Health Data and then click on the [facility] logo. HOW TO SAFELY DISPOSE OF PRESCRIPTION MEDICATIONS Please use one of the following methods to safely dispose of your unused medications. 1.Use a drug disposal kit: the drug disposal pouch allows you to safely discard your old and unused drugs. Ask your nurse to give you one when you are discharged.2.Visit a local take-back location: Many local pharmacies and police departments have programs that collect old and unwanted prescription drugs. Call your local pharmacy or go to http://bit.Clipcopia/9S2Pa6g to find one close to you.3.Make use of household items: Use cat litter or old coffee grounds to dispose medications if other options are not available. Mix your drugs with these household products, seal them in an airtight container and throw it into the garbage. Call [facility]: [phone] to be sure your drugs can be disposed of in this way. Some medicines may require a different approach.4.Never flush your medications down the toilet. IF YOU HAVE BEEN PRESCRIBED AN OPIOIDS FOR PAIN If you have been prescribed an opioid (such as hydrocodone, oxycodone or morphine), it is critical to understand the possible side effects and risks of opioid pain medications. Even when taken as directed, opioids can have several side effects including: Tolerance, meaning you might need to take more of a medication for the same pain relief. Nausea, vomiting and/or constipation. Sleepiness, dizziness, dry mouth, confusion, depression or itching. Physical dependence, meaning you have withdrawal symptoms when a medication is stopped ? this can develop within a few days. KNOW YOUR RESPONSIBILITIES It is important to know exactly how much and how often to take the opioid pain medications you are prescribed. Never take opioids in higher amounts or more often than prescribed. Do not combine opioids with alcohol or other drugs that cause drowsiness, such as benzodiazepines, also known as benzos, including diazepam and alprazolam, muscle relaxants or sleep aids. Never sell or share prescription opioids. This is illegal. Store opioids in a secure place and out of reach of others (including children, family, friends and visitors). The last page(s) of this document has been signed and retained as a CHART COPY Signatures Patient Education Materials Insect Bites and Stings Medication Leaflets My discharge plan and instructions have been reviewed and explained to me and I,DEVORAH BRYAN understand my current condition and have read and understand these discharge instructions. I have received a written copy of the plan/instructions. If I have questions, I am aware that I should contact my doctor. 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 I wore a surgical mask for the entirety of this encounter. Devorah Bryan is a 53 y.o. male with no contributory past medical history presenting after he cut his thumb. He was working on cutting a pipe and the pipe slipped and jammed his left thumb. He saw lots of bleeding so he came to the emergency department. 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 Past Medical history reviewed. REVIEW OF SYSTEMS Negative except for above HPI Review of Systems PAST MEDICAL HISTORY History reviewed. No pertinent past medical history. SURGICAL HISTORY History reviewed. No pertinent surgical history. CURRENT MEDICATIONS Previous Medications No medications on file ALLERGIES Patient has no known allergies. FAMILY HISTORY No family history on file. SOCIAL HISTORY Social History Socioeconomic History Marital status: Single Tobacco Use Smoking status: Unknown Vaping Use Vaping Use: Never used Substance and Sexual Activity Alcohol use: Never Drug use: Never SCREENINGS PHYSICAL EXAM (up to 7 for level 4, 8 or more for level 5) @EDTRIAGEVSS@ Physical Exam Constitutional: Appearance: Normal appearance. HENT: Head: Normocephalic and atraumatic. Nose: Nose normal. Mouth/Throat: Mouth: Mucous membranes are moist. Eyes: Conjunctiva/sclera: Conjunctivae normal. Cardiovascular: Rate and Rhythm: Normal rate. Pulmonary: Effort: Pulmonary effort is normal. No respiratory distress. Abdominal: General: Abdomen is flat. There is no distension. Musculoskeletal: General: Normal range of motion. Skin: General: Skin is warm and dry. Capillary Refill: Capillary refill takes less than 2 seconds. Comments: Half centimeter laceration, superficial near the nailbed but not involving the nailbed of the left thumb Neurological: Mental Status: He is alert. Psychiatric: Behavior: Behavior normal. EMERGENCY DEPARTMENT COURSE and DIFFERENTIAL DIAGNOSIS/MDM: Vitals: Vitals: 07/28/23 0745 BP: 117/86 BP Location: Right arm Patient Position: Sitting Pulse: 102 Resp: 16 Temp: 36.4 C (97.6 F) TempSrc: Oral SpO2: 95% Medications - No data to display Medical Decision Making ADDITIONAL MEDICAL DESICION MAKING IS DOCUMENTED IN THE ED COURSE. PLEASE REFER TO ED COURSE. Devorah Bryan is a 53 y.o. male with no contributory past medical history presenting after he cut his thumb. He was working on cutting a pipe and the pipe slipped and jammed his left thumb. He saw lots of bleeding so he came to the emergency department. 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 On physical exam: Half centimeter laceration, superficial near the nailbed but not involving the nailbed of the left thumb Laceration repaired with skin glue after irrigation and cleaning. Patient discharged with supportive care. Problems Addressed: Laceration of left thumb without foreign body without damage to nail, initial encounter: acute illness or injury . All independent interpretations of EKGs are documented in [facility]. Diagnoses as of 07/28/23 0752 Laceration of left thumb without foreign body without damage to nail, initial encounter CONSULTS: None PROCEDURES: Unless otherwise noted below, none Laceration Repair Performed by: Carmen Bynum MD Authorized by: Carmen Bynum MD Consent: Consent obtained: Verbal [place] protocol: Patient identity confirmed: Verbally with patient Anesthesia: Anesthesia method: None Laceration details: Location: Finger Finger location: L thumb Length (cm): 0.5 Depth (mm): 1 Exploration: Limited defect created (wound extended): no Contaminated: no Treatment: Area cleansed with: Saline Amount of cleaning: Standard Irrigation solution: Sterile saline Irrigation method: Pressure wash Visualized foreign bodies/material removed: no Debridement: None Skin repair: Repair method: Tissue adhesive Approximation: Approximation: Close Repair type: Repair type: Simple Post-procedure details: Dressing: Open (no dressing) Procedure completion: Tolerated well, no immediate complications FINAL IMPRESSION 1. Laceration of left thumb without foreign body without damage to nail, initial encounter DISPOSITION/PLAN DISPOSITION Discharge 07/28/2023 07:49:59 AM PATIENT REFERRED TO: No follow-up provider specified. DISCHARGE MEDICATIONS: New Prescriptions No medications on file @[facility]([id number]:LAST:1)@ (Please note: Portions of this note were completed with a voice recognition program. Efforts were made to edit the dictations but occasionally words and phrases are mis-transcribed.) Form [id number] Carmen Bynum MD (electronically signed) Emergency Medicine Provider Carmen Bynum MD 07/28/23 0753 Patient arrived ambulatory to room 6 without difficulty. 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 Patient states he was unable to control bleeding and thinks he needs stitches. Patient arrived with thumb wrapped in bandage, gauze and tape upon arrival. Dressing removed and cleansed with skin tegrity. Small laceration at top of nail bed on left thumb. Physician at bedside to evaluate lacerations. documented in this encounter [facility] 07-28-2023 Emergency department Triage note Patient arrived ambulatory to room 6 without difficulty. 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 Patient states he was unable to control bleeding and thinks he needs stitches. Patient arrived with thumb wrapped in bandage, gauze and tape upon arrival. Dressing removed and cleansed with skin tegrity. Small laceration at top of nail bed on left thumb. Physician at bedside to evaluate lacerations. T [facility] 07-28-2023 Physician Emergency department Note Associated Order(s): Laceration Repair [facility] ED EMERGENCY DEPARTMENT ENCOUNTER Pt Name: Devorah Bryan Birthdate 1970 Date of evaluation: 07/28/2023 Provider: Carmen Bynum MD CHIEF COMPLAINT Chief Complaint Patient presents with Finger Laceration Left thumb HISTORY OF PRESENT ILLNESS (Location/Symptom, Timing/Onset, Context/Setting, Quality, Duration, Modifying Factors, Severity) Note limiting factors. I wore a surgical mask for the entirety of this encounter. Devorah Bryan is a 53 y.o. male with no contributory past medical history presenting after he cut his thumb. He was working on cutting a pipe and the pipe slipped and jammed his left thumb. He saw lots of bleeding so he came to the emergency department. 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 Past Medical history reviewed. REVIEW OF SYSTEMS Negative except for above HPI Review of Systems PAST MEDICAL HISTORY History reviewed. No pertinent past medical history. SURGICAL HISTORY History reviewed. No pertinent surgical history. CURRENT MEDICATIONS Previous Medications No medications on file ALLERGIES Patient has no known allergies. FAMILY HISTORY No family history on file. SOCIAL HISTORY Social History Socioeconomic History Marital status: Single Tobacco Use Smoking status: Unknown Vaping Use Vaping Use: Never used Substance and Sexual Activity Alcohol use: Never Drug use: Never SCREENINGS PHYSICAL EXAM (up to 7 for level 4, 8 or more for level 5) @EDTRIAGEVSS@ Physical Exam Constitutional: Appearance: Normal appearance. HENT: Head: Normocephalic and atraumatic. Nose: Nose normal. Mouth/Throat: Mouth: Mucous membranes are moist. Eyes: Conjunctiva/sclera: Conjunctivae normal. Cardiovascular: Rate and Rhythm: Normal rate. Pulmonary: Effort: Pulmonary effort is normal. No respiratory distress. Abdominal: General: Abdomen is flat. There is no distension. Musculoskeletal: General: Normal range of motion. Skin: General: Skin is warm and dry. Capillary Refill: Capillary refill takes less than 2 seconds. Comments: Half centimeter laceration, superficial near the nailbed but not involving the nailbed of the left thumb Neurological: Mental Status: He is alert. Psychiatric: Behavior: Behavior normal. EMERGENCY DEPARTMENT COURSE and DIFFERENTIAL DIAGNOSIS/MDM: Vitals: Vitals: 07/28/23 0745 BP: 117/86 BP Location: Right arm Patient Position: Sitting Pulse: 102 Resp: 16 Temp: 36.4 C (97.6 F) TempSrc: Oral SpO2: 95% Medications - No data to display Medical Decision Making ADDITIONAL MEDICAL DESICION MAKING IS DOCUMENTED IN THE ED COURSE. PLEASE REFER TO ED COURSE. Devorah Bryan is a 53 y.o. male with no contributory past medical history presenting after he cut his thumb. He was working on cutting a pipe and the pipe slipped and jammed his left thumb. He saw lots of bleeding so he came to the emergency department. 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 On physical exam: Half centimeter laceration, superficial near the nailbed but not involving the nailbed of the left thumb Laceration repaired with skin glue after irrigation and cleaning. Patient discharged with supportive care. Problems Addressed: Laceration of left thumb without foreign body without damage to nail, initial encounter: acute illness or injury . All independent interpretations of EKGs are documented in [facility]. Diagnoses as of 07/28/23 0752 Laceration of left thumb without foreign body without damage to nail, initial encounter CONSULTS: None PROCEDURES: Unless otherwise noted below, none Laceration Repair Performed by: Carmen Bynum MD Authorized by: Carmen Bynum MD Consent: Consent obtained: Verbal [place] protocol: Patient identity confirmed: Verbally with patient Anesthesia: Anesthesia method: None Laceration details: Location: Finger Finger location: L thumb Length (cm): 0.5 Depth (mm): 1 Exploration: Limited defect created (wound extended): no Contaminated: no Treatment: Area cleansed with: Saline Amount of cleaning: Standard Irrigation solution: Sterile saline Irrigation method: Pressure wash Visualized foreign bodies/material removed: no Debridement: None Skin repair: Repair method: Tissue adhesive Approximation: Approximation: Close Repair type: Repair type: Simple Post-procedure details: Dressing: Open (no dressing) Procedure completion: Tolerated well, no immediate complications FINAL IMPRESSION 1. Laceration of left thumb without foreign body without damage to nail, initial encounter DISPOSITION/PLAN DISPOSITION Discharge 07/28/2023 07:49:59 AM PATIENT REFERRED TO: No follow-up provider specified. DISCHARGE MEDICATIONS: New Prescriptions No medications on file @[facility]([id number]:LAST:1)@ (Please note: Portions of this note were completed with a voice recognition program. Efforts were made to edit the dictations but occasionally words and phrases are mis-transcribed.) Form [id number] Carmen Bynum MD (electronically signed) Emergency Medicine Provider Carmen Bynum MD 07/28/23 0753 [facility] [employer] 05-05-2022 SARS-CoV-2 (COVID-19) RNA SHERRY+probe Ql (Nph) Negative (05/05/22 12:00 PM) AO Auto Urine SS 12-15-2021 Evaluation + Plan note Future Scheduled TestsProstate Specific Antigen 12/15/21Prostate Specific Antigen 06/07/21A1C Hemoglobin 12/15/21Lipid Profile 12/15/21Lipid Profile 12/08/21Complete Metabolic Panel 12/15/21Complete Metabolic Panel 12/08/21 [facility] 11-27-2021 Hospital Discharge instructions Patient Education 11/27/2021 20:44:46 Rib Contusion Rib Contusion A rib contusion is a bruise to one or more rib bones. It may cause pain, tenderness, swelling and a purplish discoloration. There may be a sharp pain while breathing. You will be assessed for other injuries. You will likely be given pain medicine. Rib contusions heal on their own, without further treatment. However, pain may take weeks to months to go away. Note that a small crack (fracture) in the rib may cause the same symptoms as a rib contusion. The small crack may not be seen on a chest X-ray. However, the conditions are managed in the same way. Home care Rest. Avoid heavy lifting, strenuous exertion, or any activity that causes pain. Ice the area to reduce pain and swelling. Put ice cubes in a plastic bag or use a cold pack. (Wrap the cold source in a thin towel. Do not place it directly on your skin.) Ice the injured area for 20 minutes every 1 to 2 hours the first day. Continue with ice packs 3 to 4 times a day for the next 2 days, then as needed for the relief of pain and swelling. Take any prescribed pain medicine as directed by your healthcare provider. If none was prescribed, take acetaminophen, ibuprofen, or naproxen to control pain. If you have a significant injury, you may be given a device called an incentive spirometer to keep your lungs healthy. Use as directed. Follow-up care Follow up with your healthcare provider during the next week or as directed. When to seek medical advice Call your healthcare provider for any of the following: Shortness of breath or trouble breathing Increasing chest pain with breathing Coughing Dizziness, weakness, or fainting New or worsening pain Fever of 100.4 F (38 C) or higher, or as directed by your healthcare provider [id number] [employer]. [address] [place] [address]. All rights reserved. This information is not intended as a substitute for professional medical care. Always follow your healthcare professional's instructions. Follow Up Care 11/27/2021 20:04:08 With:KAREEM JOYNER MD Address: When:2-4 days [facility] Evaluation + Plan note Future Appointments Appointment Date:12/07/2021 02:00:00 PM Scheduled Provider:KAREEM JOYNER MD Location:[facility] Appointment Type:PC OV Future Scheduled TestsProstate Specific Antigen 8/Lipid Profile 12/08/21Complete Metabolic Panel 12/08/21 [facility] Evaluation + Plan note Future Appointments Appointment Date:12/07/2021 02:15:00 PM Scheduled Provider:KAREEM JOYNER MD Location:[facility] Appointment Type:PC OV Future Scheduled TestsProstate Specific Antigen 8/2/21Lipid Profile 12/08/21Complete Metabolic Panel 12/08/21 [facility] Evaluation + Plan note Future Appointments Appointment Date:10/04/2022 03:00:00 PM Scheduled Provider:KAREEM JOYNER MD Location:[facility] Appointment Type:[facility] Evaluation + Plan note Future Appointments Appointment Date:07/31/2024 03:00:00 PM Scheduled Provider:KAREEM JOYNER MD Location:[facility] Appointment Type:[facility] Evaluation + Plan note Future Appointments Appointment Date:11/26/2024 03:30:00 PM Scheduled Provider:KAREEM JOYNER MD Location:[facility] Appointment Type:[facility] Evaluation note No assessment inform ation available [facility] Work Phone: Evaluation note Diagnosis Laceration of left thumb without foreign body without damage to nail, initial encounter- [facility] N[facility] No data available for this section [facility] Hospital Discharge instructions No data available for this section [facility] Hospital Discharge instructions* Attachments The following attachments cannot be sent through Care Everywhere. * Laceration Repair With Glue Discharge Instructions (Turkmen) documented in this [facility] HealthProgress note No data available for this section [facility] Chief Complaint and Reason for Visit Chief Complaint CHRONIC OBSTRUCTIVE PULMONARY DISEASE CHRONIC OBSTRUCTIVE PULMONARY DISEASE COPD Chief Complaint CHRONIC OBSTRUCTIVE PULMONARY DISEASE CHRONIC OBSTRUCTIVE PULMONARY DISEASE COPD COPD Chief Complaint NICOTINE DEPENDENCE Family History No Family History Records Found Relationship Condition Age at Onset Recorded Date/T mariano father Dementia Unknown grandfather Cardiac disease Unknown grandmother Malignant neoplasm of breast Unknown Hypertension Unknown Advance Directives No Advanced Directives Records Found Advance Directive Response Recorded Date/ Time Living Will No February 27, 2014 8:41pm Power of Animal Pathologist No February 27 8:41pm Summary Purpose Additional Source Comments Goals (unrecognized section and content) Goals may be documented in a n alternate section Care Team (unrecognized sect ion and content) Care Team Personnel Name: KAREEM JOYNER MD Position: P4 Physician - Primary Care Med Service: Active Provider Member Role: Primary Care Physician Address: Address: [place] [address] Care Team Related Persons Name: HERNAN VAZQUEZ Name: HECTOR BRYAN Name: JOSHUA MORA Care Team Personnel Name: KAREEM JOYNER MD Position: P4 Physician - Primary Care Member Role: Primary Care Physician Address: Address: [place] [address] Care Team Related Persons Name: RANDIHECTOR JETT Name: JOSHUA MORA Reason for Visit (unrecogniz ed section and content) Reason Comments Finger Laceration Left thumb Care Teams (unrecognized sec tion and content) Bow String Maker Relationship Specialty Start Date End Date Kareem Joy[place] [id number] PCP - General Family Medicine 07/28/23 (unrecognized sect ion and content) No Status Records FoundNo Status Records FoundNo Status Records Found INFORMATION SOURCE (unrecogn ized section and content) DATE CREATED AUTHOR 04/18/2024 [facility] ([place]) DATE CREATED AUTHOR AUTHOR'S ORGANIZ ATION 11/22/2024 [facility] DATE CREATED AUTHOR AUTHOR'S ORGANIZ ATION 03/16/2025 [facility] FOR RECORDS PERTAINING TO PATIENTS WHO ARE OR HAVE BEEN ENROLLED IN A CHEMICAL DEPENDENCY/SUBSTANCEABUSE PROGRAM, SOME INFORMATION MAY BE OMITTED. This clinical summary was aggregated from multiple sources. Caution should be exercised in using it in the provision of clinical care. This summary normalizes information from multiple sources, and as a consequence, information in this document may materially change the coding, format and clinical context of patient data. In addition, data may be omitted in some cases. CLINICAL DECISIONS SHOULD BE BASED ON THE PRIMARY CLINICAL RECORDS. [facility]. provides no warranty or guarantee of the accuracy or completeness of information in this document.
== END | disposition home or self-care (01) ==
LOC: CT 07:14
PROVIDERS: PCP Family Medicine; Referring Provider Nurse Practitioner Acute Care; Visit Provider Nurse Practitioner Acute Care
DX: Z12.2 Encounter for screening for malignant neoplasm of respiratory organs (principal); F17.210 Nicotine dependence, cigarettes, uncomplicated
CPT/HCPCS: 71271

== ENCOUNTER → 2025-09-15 | Outpatient (CLI) | payer MEDICAID, SELFPAY ==
--- NOTE | 2025-09-15 18:44 | CT_ITS ---
CT/Chest without Contrast
== END | disposition home or self-care (01) ==
LOC: CT 18:41
PROVIDERS: PCP Family Medicine; Referring Provider Nurse Practitioner Acute Care; Visit Provider Nurse Practitioner Acute Care
DX: R91.8 Other nonspecific abnormal finding of lung field (principal)
CPT/HCPCS: 71250